=== PATIENT | male | born 1970 | race Caucasian/White ===

== ENCOUNTER 2016-09-10 00:13 | Emergency (ER) | payer BC, OTHER ==
[~2016-09-10] VITALS: Ht 177.8 cm; Wt 90.7 kg
[2016-09-10] MEDS ORDERED: NS IV 1000 ML 1,000 ML ONE (00:26)
[2016-09-10] MEDS ORDERED: ASPIRIN 81 MG CHEW (CHILDREN'S ASA) ONE (00:26)
[2016-09-10] MEDS ORDERED: fentaNYL INJECTION 100 MCG/2 ML AMP ONE (00:26)
[2016-09-10] MEDS ORDERED: fentaNYL INJECTION 100 MCG/2 ML AMP IVP STA (00:27)
[2016-09-10] MEDS ORDERED: NS IV 1000 ML 1,000 ML IV ONE ×2 (00:27→02:01)
--- NOTE | 2016-09-10 00:27 | ED Chest Pain ---
General Chief Complaint: General Problems/Pain Stated Complaint: CP Source: EMS Exam Limitations: no limitations History of Present Illness Time seen by provider: 00:19 Initial Comments Patient presents to ER by EMS with chest pain that started approximately 2030 tonight. He's had this pain intermittently for the past 3 or 4 days. It's about 8 out of 10 presently worse when he takes deep inspiration on the right side that radiates up his chest and towards his right neck and right shoulder. He is having no numbness or tingling, nausea, chills, fever, rash. He is not short of breath presently. He states in the past 6 months she's had a lot of swelling in his left ankle and right knee that was attributed to his statin use so he was started on NSAIDs Naprosyn and Nabumetone. Last dose was before going to bed. He says at home he took a single dose of amoxicillin to see if this would make it better. He has no cough nor shortness of breath. Splinting his right chest and sitting upwards make it feel better. For the past 6 months is been told to stay off his left foot so he has been spitting most of his time in his recliner fairly immobilized. He has no pain swelling or redness in his lower extremities. He says the left ankle is just about completely healed. He does however have a history of high blood pressure and diabetes but no hypothyroidism. He does not smoke but uses a can of chewing tobacco every 2-3 days. No significant family history. Patient states he has been held up in his recliner for the past 6 months secondary to his inflammatory right knee and left ankle disorder. Allergies and Home Medications Allergies Coded Allergies: No Known Drug Allergies (Unverified , 09/10/16) Home Medications Cetirizine HCl 10 Mg Tablet, #90 (Reported) Glipizide/Metformin HCl 1 Each Tablet, #60 (Reported) Hydrocodone/Acetaminophen 1 Each Tablet, #60 (Reported) Lisinopril 40 Mg Tablet, #30 (Reported) Lorazepam 1 Mg Tablet, #30 (Reported) Metoprolol Tartrate 100 Mg Tablet, #60 (Reported) Nabumetone 500 Mg Tablet, #60 (Reported) Ranitidine HCl 150 Mg Tablet, #180 (Reported) [ProAir] , #9 (Reported) Review of Systems Constitutional: No chills, No diaphoresis, No fever, No malaise Respiratory: Denies Cough, Denies Shortness of Air Cardiovascular: See HPI, Chest Pain, Denies Edema, Denies Irregular Heart Rate , Denies Lightheadedness, Denies Palpitations, Denies Syncope Gastrointestinal: Denies Abdomen Distended, Denies Abdominal Pain, Denies Constipated, Denies Diarrhea, Denies Nausea, Denies Vomiting Genitourinary: Denies Burning, Denies Discharge Musculoskeletal: No back pain, No joint pain Skin: No pruritus, No rash Psychiatric/Neurological: Denies Headache, Denies Numbness Past Motridk-Ejgiko-Imbjks Hx Patient Social History Alcohol Use: Occasionally Uses Recreational Drug Use: No Smoking Status: Never a Smoker Type Used: Smokeless Tobacco Recent Foreign Travel: No Contact w/Someone Who Travel: No Physical Exam Vital Signs Vital Sign - Last 12Hours 09/10/16 00:13 Temp 97.4 Pulse 96 Resp 24 B/P (MAP) 176/123 Pulse Ox 97 O2 Delivery Room Air Capillary Refill : General Appearance: WD/WN, Mild Distress Neck: Full Range of Motion, Supple Respiratory: Lungs Clear, Normal Breath Sounds, No Accessory Muscle Use, No Respiratory Distress, Other (chest is tender to palpation in the mid axillary to the nipple line about rib 4 through 6.) Cardiovascular: Regular Rate, Rhythm, No Edema, No JVD, No Murmur, Normal Peripheral Pulses Gastrointestinal: Normal Bowel Sounds, Non Tender, Soft Extremity: Normal Capillary Refill, Normal Inspection, No Calf Tenderness, No Pedal Edema Neurologic/Psychiatric: Alert, Oriented x3, Normal Mood/Affect Skin: Normal Color, Warm/Dry Progress/Results/Core Measures Results/Orders Lab Results Laboratory Tests Test 09/10/16 00:13 Range/Units White Blood Count 11.3 H 4.3-11.0 10^3/uL Red Blood Count 4.51 4.35-5.85 10^6/uL Hemoglobin 14.7 13.3-17.7 G/DL Hematocrit 43 40-54 % Mean Corpuscular Volume 94 80-99 FL Mean Corpuscular Hemoglobin 33 25-34 PG Mean Corpuscular Hemoglobin Concent 35 32-36 G/DL Red Cell Distribution Width 12.6 10.0-14.5 % Platelet Count 202 130-400 10^3/uL Mean Platelet Volume 11.1 H 7.4-10.4 FL Neutrophils (%) (Auto) 57 42-75 % Lymphocytes (%) (Auto) 29 12-44 % Monocytes (%) (Auto) 12 0-12 % Eosinophils (%) (Auto) 3 0-10 % Basophils (%) (Auto) 0 0-10 % Neutrophils # (Auto) 6.4 1.8-7.8 X 10^3 Lymphocytes # (Auto) 3.2 1.0-4.0 X 10^3 Monocytes # (Auto) 1.3 H 0.0-1.0 X 10^3 Eosinophils # (Auto) 0.3 0.0-0.3 10^3/uL Basophils # (Auto) 0.0 0.0-0.1 10^3/uL Prothrombin Time 12.9 12.2-14.7 SEC INR Comment 1.0 0.8-1.4 Activated Partial Thromboplast Time 29 24-35 SEC D-Dimer 2.47 H 0.00-0.49 UG/ML Sodium Level 139 135-145 MMOL/L Potassium Level 3.7 3.6-5.0 MMOL/L Chloride Level 103 98-107 MMOL/L Carbon Dioxide Level 21 21-32 MMOL/L Anion Gap 15 H 5-14 MMOL/L Blood Urea Nitrogen 16 7-18 MG/DL Creatinine 1.03 0.60-1.30 MG/DL Estimat Glomerular Filtration Rate > 60 BUN/Creatinine Ratio 16 Glucose Level 98 70-105 MG/DL Calcium Level 9.5 8.5-10.1 MG/DL Magnesium Level 1.0 *L 1.8-2.4 MG/DL Total Bilirubin 0.6 0.1-1.0 MG/DL Aspartate Amino Transf (AST/SGOT) 27 5-34 U/L Alanine Aminotransferase (ALT/SGPT) 39 0-55 U/L Alkaline Phosphatase 80 40-136 U/L Myoglobin 32.1 10.0-92.0 NG/ML Troponin I < 0.30 <0.30 NG/ML Total Protein 7.9 6.4-8.2 GM/DL Albumin 4.3 3.2-4.5 GM/DL Lipase 177 H 8-78 U/L My Orders Orders - EMMY CID Cbc With Automated Diff (09/10/16 00:27) Magnesium (09/10/16 00:27) Chest 1 View, Ap/Pa Only (09/10/16 00:27) Ekg Tracing (09/10/16 00:27) Cardiac Profile 1 (09/10/16) Comprehensive Metabolic Panel (09/10/16 00:) Myoglobin Serum (09/10/16 00:) Protime With Inr (09/10/16:) Partial Thromboplastin Time (09/10/16 00:) O2 (09/10/16:) Monitor-Rhythm Ecg Trace Only (09/10/16) Lipid Panel (09/11/16 06:00) Aspirin Chewable Tablet (Baby Aspirin Ch (09/10/16 00:30) Saline Lock/Iv-Start (09/10/16 00:27) Lipase (09/10/16:) Fibrin Degradation Products (09/10/16:) Saline Lock/Iv-Start (09/10/16 00:27) Ns Iv 1000 Ml (Sodium Chloride 0.9%) (09/10/16 00:27) Fentanyl Injection (Sublimaze Injection (09/10/16 00:27) Fentanyl Injection (Sublimaze Injection (09/10/16 00:26) Aspirin Chewable Tablet (Baby Aspirin Ch (09/10/16 00:26) Ns Iv 1000 Ml (Sodium Chloride 0.9%) (09/10/16 00:26) Hydrocodone/Apap 5/325 Tablet (Lortab 5 (09/10/16 02:15) Ct Abdomen/Pelvis W (09/10/16 02:01) Ns Iv 1000 Ml (Sodium Chloride 0.9%) (09/10/16 02:01) Iohexol Injection (Omnipaque 350 Mg/Ml 1 (09/10/16 02:30) Ns (Ivpb) (Sodium Chloride 0.9% Ivpb Bag (09/10/16 02:30) Magnesium 1 Gm/100 Ml Ivpb (Magnesium Posada (09/10/16 02:30) Magnesium Oxide Tablet (Mag Ox Tablet) (09/10/16 02:30) Lorazepam Injection (Ativan Injection) (09/10/16 03:45) Rivaroxaban Tablet (Xarelto Tablet) (09/10/16 04:00) Rivaroxaban Tablet (Xarelto Tablet) (09/10/16 03:54) Medications Given in ED Current Medications Medications Dose Ordered Sig/Taras Route Start Time Stop Time Status Last Admin Dose Admin Acetaminophen/ Hydrocodone Bitart 1 tab ONCE ONCE PO 09/10/16 02:15 09/10/16 02:16 DC 09/10/16 02:36 1 TAB Aspirin 324 mg ONCE ONCE PO 09/10/16 00:30 09/10/16 00:31 DC 09/10/16 00:37 324 MG Iohexol 100 ml ONCE ONCE IV 09/10/16 02:30 09/10/16 03:19 DC 09/10/16 02:24 100 ML Lorazepam 0.5 mg ONCE ONCE IVP 09/10/16 03:45 09/10/16 03:46 DC 09/10/16 04:25 0.5 MG Magnesium Oxide 400 mg ONCE ONCE PO 09/10/16 02:30 09/10/16 02:31 DC 09/10/16 02:47 400 MG Magnesium Sulfate/ Dextrose 100 ml @ 100 mls/hr ONCE ONCE IV 09/10/16 02:30 09/10/16 03:29 DC 09/10/16 02:41 100 MLS/HR Rivaroxaban 15 mg ONCE ONCE PO 09/10/16 04:00 09/10/16 04:01 DC 09/10/16 04:26 15 MG Sodium Chloride 80 ml ONCE ONCE IV 09/10/16 02:30 09/10/16 03:19 DC 09/10/16 02:23 80 ML Sodium Chloride 1,000 ml @ 0 mls/hr Q0M ONCE IV 09/10/16 00:27 09/10/16 00:30 DC 09/10/16 00:37 1,000 MLS/HR Sodium Chloride 1,000 ml @ 0 mls/hr Q0M ONCE IV 09/10/16 02:01 09/10/16 02:05 DC 09/10/16 02:36 1,000 MLS/HR Vital Signs/I&O Vital Sign - Last 12Hours 09/10/16 09/10/16 00:13 03:57 Temp 97.4 Pulse 96 77 Resp 24 20 B/P (MAP) 176/123 155/113 Pulse Ox 97 96 O2 Delivery Room Air Room Air Progress Note #1: Time: 02:34 Progress Note Mild increase in lipase patient is a history of these had hypertriglyceridemia along with his cholesterolemia and is not able to tolerate statins. Allowed along with his diabetes which is been out of control secondary to his use of prednisone for his right knee and left ankle pain. Lead to a diagnosis of acute pancreatitis. We'll get a CT scan abdomen. Progress Note #2: Time: 03:56 Progress Note Xarelto; 15 mg twice daily with food for 21 days followed by 20 mg once daily with food. We will stress test him by allowing him to walk to bathroom off of O2 to see if he will need inpt or outpt Tx for his provoked PE. ECG Initial ECG Impression Date: Sep 10, 2016 Initial ECG Impression Time: 00:19 Initial ECG Rate: 96 Initial ECG Rhythm: Normal Sinus Initial ECG Intervals: Normal Initial ECG Impression: Normal Initial ECG Comparisson: No Previous ECG Available Comment No ST wave elevation or depression. Diagnostic Imaging Diagonstic Imaging: Xray Plain Films/CT/US/NM/MRI: chest Comments Poor inspiratory effort probably secondary to pain. No acute processes noted. Reviewed: Reviewed by Me Diagonstic Imaging: CT Plain Films/CT/US/NM/MRI: abdomen (pelvis with) Comments PE RLL infarct and Left Inguinal fat containing hernia. Partially imaged moderate to large pulmonary embolus in the right lower lobe. Right lower lung has heterogenous opacity with peripheral consolidation a small pleural effusion suggestive of infarct. fatty liver. Large fat-containing left inguinal hernia. Appendix is visualized is normal. Reviewed: Reviewed [place] Study, Reviewed by Me, Discussed w/Radiologist Departure Impression Impression: Primary Impression: Pulmonary embolism and infarction Disposition: 01 HOME, SELF-CARE Condition: Improved Departure-Patient Inst. Decision time for Depature: 04:32 Referrals: [facility] (PCP/Family) Primary Care Physician Patient Instructions: Pulmonary Embolism (Blood Clot in the Lungs) (DC) Add. Discharge Instructions: You have a clot in her lungs that he'll require anticoagulation with Xarelto. For the first 3 weeks she will need to take 15 mg twice a day. After that you will need to be on 20 mg every day for a total of about 3 months. Please plan to follow up with your primary care physician next week. If you're having new or worsening symptoms such as fevers, increasing shortness of breath, uncontrollable pain or other worrisome symptoms then you should return to the ER immediately. Do not take any NSAIDs such as Naprosyn, nabumetone, ibuprofen, Aleve, Motrin etc. while on blood thinners. You should not do anything that would increase your risk for a fall or head injury. If you do have a fall or hit your head you should return to the ER for evaluation immediately. If you get cut you're going to be more prone to bleed so you should apply direct pressure over the site and hold the wound above the level of your heart for 20- 30 minutes. If you're having pain you should take Tylenol 500 mg every 6 hours as needed as well as you can use a pillow to splint your side or heating pad. If this does not work then you can use the [place] one tablet every 6 hours to control your pain. You will need to see your primary care physician if you need refills of any of your medicines. All discharge instructions reviewed with patient and/or family. Voiced understanding. Scripts Hydrocodone/Acetaminophen (Hydrocodon -Acetaminophen 5-325) 1 Each Tablet 1 EACH PO Q6H Y for BREAKTHROUGH PAIN, #20 TAB 0 Refills Prov: EMMY CID 09/10/16 Rivaroxaban (Xarelto Starter Pack) 1 Each Tab.ds.pk 1 EACH PO UD for 30 Days, #51 PKG 0 Refills 15mg by mouth twice daily x 21 days then 20mg by mouth daily Prov: EMMY CID 09/10/16 Work/School Note: Work Release Form Date Seen in the Emergency Department: Sep 10, 2016 Return to Work: Sep 11, 2016 Restrictions: Need Release from Doctor Other Restrictions Listed Below: No climbing or anything that would put him in increased risk for falls. Copy Copies To 1: ANJEL BRADFORD DO EMMY CID Sep 10, 2016 00:27
[2016-09-10] MEDS ORDERED: ASPIRIN 81 MG CHEW (CHILDREN'S ASA) PO ONE (00:30)
[2016-09-10 00:34] LABS: BASOPHILS % (AUTO) 0 % (0-10); EOSINOPHILS # (AUTO) 0.3 10^3/uL (0.0-0.3); EOSINOPHILS % (AUTO) 3 % (0-10); LYMPHOCYTES # (AUTO) 3.2 X 10^3 (1.0-4.0); LYMPHOCYTES % (AUTO) 29 % (12-44); MEAN CORPUSCULAR HEMOGLOBIN 33 PG (25-34); MEAN CORPUSCULAR HGB CONC 35 G/DL (32-36); MEAN CORPUSCULAR VOLUME 94 FL (80-99); MEAN PLATELET VOLUME 11.1 FL (7.4-10.4); MONOCYTES # (AUTO) 1.3 X 10^3 (0.0-1.0); MONOCYTES % (AUTO) 12 % (0-12); NEUTROPHILS # (AUTO) 6.4 X 10^3 (1.8-7.8); NEUTROPHILS % (AUTO) 57 % (42-75); PLATELET COUNT 202 10^3/uL (130-400); RED BLOOD COUNT 4.51 10^6/uL (4.35-5.85); RED CELL DISTRIBUTION WIDTH 12.6 % (10.0-14.5); WHITE BLOOD COUNT 11.3 10^3/uL (4.3-11.0)
[2016-09-10] MEDS ORDERED: CETI10TA17 (00:45)
[2016-09-10] MEDS ORDERED: ProAir (00:45)
[2016-09-10] MEDS ORDERED: METO100T2 (00:45)
[2016-09-10] MEDS ORDERED: NABU500T (00:45)
[2016-09-10] MEDS ORDERED: GLIP1TAB6 (00:45)
[2016-09-10] MEDS ORDERED: LORA1TAB (00:45)
[2016-09-10] MEDS ORDERED: RANI150T11 (00:45)
[2016-09-10] MEDS ORDERED: LISI40TA (00:45)
[2016-09-10] MEDS ORDERED: HYDR-3812 (00:45)
[2016-09-10 00:47] LABS: ALANINE AMINOTRANSFERASE 39 U/L (0-55); ALBUMIN 4.3 GM/DL (3.2-4.5); ANION GAP 15 MMOL/L (5-14); ASPARTATE AMINO TRANSFERASE 27 U/L (5-34); BILIRUBIN,TOTAL 0.6 MG/DL (0.1-1.0); BLOOD UREA NITROGEN 16 MG/DL (7-18); BUN/CREATININE RATIO 16; CALCIUM 9.5 MG/DL (8.5-10.1); CARBON DIOXIDE 21 MMOL/L (21-32); CHLORIDE 103 MMOL/L (98-107); CREATININE SERUM 1.03 MG/DL (0.60-1.30); GFR ESTIMATED > 60; GLUCOSE 98 MG/DL (70-105); LIPASE 177 U/L (8-78); POTASSIUM 3.7 MMOL/L (3.6-5.0); SODIUM 139 MMOL/L (135-145); TOTAL PROTEIN 7.9 GM/DL (6.4-8.2)
[2016-09-10 00:54] LABS: MYOGLOBIN SERUM 32.1 NG/ML (10.0-92.0)
[2016-09-10 01:11] LABS: PROTHROMBIN TIME PATIENT 12.9 SEC (12.2-14.7)
[2016-09-10] MEDS ORDERED: HYDROcodone/APAP 5 MG/325 MG (LORTAB) TAB PO ONE (02:15)
[2016-09-10] MEDS ORDERED: MAGNESIUM OXIDE (MAG-OX)400 MG TAB PO ONE (02:30)
[2016-09-10] MEDS ORDERED: NS 100 ML (IVPB) BAG IV ONE (02:30)
[2016-09-10] MEDS ORDERED: IOHEXOL 350 MG/ML 100 ML (OMNIPAQUE 350) VIAL IV ONE (02:30)
[2016-09-10] MEDS ORDERED: MAGNESIUM 1 GM/100 ML IVPB 100 ML IV ONE (02:30)
[2016-09-10] MEDS ORDERED: LORazepam INJ 2 MG/ML (ATIVAN) VIAL IVP ONE (03:45)
[2016-09-10] MEDS ORDERED: RIVAROXABAN 15 MG TABLET (XARELTO) ONE (03:54)
[2016-09-10 03:57] VITALS: BP 155/113
[2016-09-10] MEDS ORDERED: RIVAROXABAN 15 MG TABLET (XARELTO) PO ONE (04:00)
[2016-09-10] MEDS ORDERED: RIVA1TAB PO (04:40)
[2016-09-10] MEDS ORDERED: HYDR-3812 PO (04:40)
[2016-09-10 04:50] VITALS: BP 156/116
--- NOTE | 2016-09-10 07:24 | Diagnostic Imaging Report ---
INDICATION: Shortness of air, chest pain.. TECHNIQUE: Single view chest 12:40 AM. CORRELATION STUDY: None FINDINGS: Heart size enlarged. Mediastinum is mildly prominent. Vasculature is slightly increased. There does appear to be some early atelectasis or infiltrate lung bases. However, some of this is accentuated by technique. Probable small effusions. IMPRESSION: 1. Cardiac enlargement with prominent mediastinum. Vascular also increased. Some of this may be attributed to a limited depth of inspiration and technique. Early fluid overload or failure however not excluded. There may be minimal atelectasis or infiltrate along with a small effusion in the lung bases. Dictated by: Dictated on workstation # [id number]
--- NOTE | 2016-09-10 07:43 | Diagnostic Imaging Report ---
PROCEDURE: CT abdomen and pelvis with contrast. TECHNIQUE: Multiple contiguous axial images were obtained through the abdomen and pelvis after administration of intravenous contrast. INDICATION: CORRELATION STUDY: None. FINDINGS: The partially visualized lung bases demonstrates what appears to be extensive of embolus within the right lower lobe branches. Right lower lung has heterogeneous opacity with peripheral consolidation and small pleural effusions suggestive of the pulmonary infarct. Heart size is mildly enlarged. EG junction unremarkable. There is hepatic steatosis with a enlarged liver greater than 20 cm in length. Spleen also mildly enlarged. Gallbladder contracted. Pancreas and adrenal glands unremarkable. Abdominal aorta unremarkable apart from mild wall calcification. Kidneys demonstrate normal enhancement. No obstruction. Gastric vessel tract without obstruction or inflammation. Large fat containing left inguinal hernia. Appendix located in the right lower quadrant and unremarkable. Urinary bladder unremarkable. IMPRESSION: 1. Findings consistent with rather extensive emboli within the right lower lobe with findings suggestive of underlying pulmonary infarct. 2. Hepatomegaly with hepatic steatosis. 3. Rather large, fat-containing left inguinal hernia. Fat extends into the visualized portion of the scrotum. A preliminary report was provided by [employer]. Dictated by: Dictated on workstation # [id number]
== END 2016-09-10 04:50 | disposition home or self-care (01) ==
LOC: EDUNIT# 00:13 → ER 00:14
DX: I26.99 Other pulmonary embolism without acute cor pulmonale (principal); K76.0 Fatty (change of) liver, not elsewhere classified; K40.90 Unilateral inguinal hernia, without obstruction or gangrene, not specified as recurrent; E78.5 Hyperlipidemia, unspecified; I10 Essential (primary) hypertension; E11.9 Type 2 diabetes mellitus without complications; F17.220 Nicotine dependence, chewing tobacco, uncomplicated; Z79.84 Long term (current) use of oral hypoglycemic drugs; Z79.899 Other long term (current) drug therapy
CPT/HCPCS: 36415; 71010; 74177; 80053; 83690; 83735; 83874; 84484; 85025; 85379; 85610; 85730; 93005; 96361; 96365; 96375

== ENCOUNTER 2016-09-15 06:45 | Emergency (ER) | payer BC ==
[~2016-09-15] VITALS: Ht 177.8 cm; Wt 93.0 kg
[~2016-09-15 06:45] MED LIST: CETI10TA17; GLIP1TAB6; HYDR-3812; HYDR-3812 PO; LISI40TA; LORA1TAB; METO100T2; NABU500T; ProAir; RANI150T11; RIVA1TAB PO
[2016-09-15] MEDS ORDERED: NS IV 1000 ML 1,000 ML IV ONE (07:09)
[2016-09-15] MEDS ORDERED: fentaNYL INJECTION 100 MCG/2 ML AMP IVP STA (07:09)
[2016-09-15 07:24] LABS: BASOPHILS % (AUTO) 0 % (0-10); EOSINOPHILS # (AUTO) 0.1 10^3/uL (0.0-0.3); EOSINOPHILS % (AUTO) 1 % (0-10); LYMPHOCYTES % (AUTO) 17 % (12-44); MEAN CORPUSCULAR HEMOGLOBIN 32 PG (25-34); MEAN CORPUSCULAR HGB CONC 34 G/DL (32-36); MEAN CORPUSCULAR VOLUME 95 FL (80-99); MEAN PLATELET VOLUME 10.7 FL (7.4-10.4); MONOCYTES # (AUTO) 1.5 X 10^3 (0.0-1.0); MONOCYTES % (AUTO) 13 % (0-12); NEUTROPHILS # (AUTO) 7.9 X 10^3 (1.8-7.8); NEUTROPHILS % (AUTO) 69 % (42-75); PLATELET COUNT 216 10^3/uL (130-400); RED BLOOD COUNT 4.05 10^6/uL (4.35-5.85); RED CELL DISTRIBUTION WIDTH 12.5 % (10.0-14.5); WHITE BLOOD COUNT 11.4 10^3/uL (4.3-11.0)
[2016-09-15 07:41] LABS: ALANINE AMINOTRANSFERASE 45 U/L (0-55); ALBUMIN 3.9 GM/DL (3.2-4.5); AMYLASE 92 U/L (25-125); ANION GAP 16 MMOL/L (5-14); ASPARTATE AMINO TRANSFERASE 32 U/L (5-34); BILIRUBIN,TOTAL 0.7 MG/DL (0.1-1.0); BLOOD UREA NITROGEN 11 MG/DL (7-18); BUN/CREATININE RATIO 9; CALCIUM 8.7 MG/DL (8.5-10.1); CARBON DIOXIDE 19 MMOL/L (21-32); CHLORIDE 102 MMOL/L (98-107); CREATININE SERUM 1.16 MG/DL (0.60-1.30); GFR ESTIMATED > 60; GLUCOSE 130 MG/DL (70-105); LIPASE 35 U/L (8-78); SODIUM 137 MMOL/L (135-145); TOTAL PROTEIN 7.7 GM/DL (6.4-8.2)
--- NOTE | 2016-09-15 07:45 | Diagnostic Imaging Report ---
INDICATION: Shortness of air. Recent pulmonary emboli. COMPARISON: CT abdomen and pelvis from 09/10/2016. FINDINGS: Right basilar heterogeneous opacities have not significantly changed. Small right pleural effusion persists. No pneumothorax. Stable borderline cardiomegaly. IMPRESSION: 1. Right basilar heterogeneous opacities likely relate to a combination of atelectasis and potential pulmonary infarct given known pulmonary emboli. 2. Trace right pleural effusion is unchanged. Dictated by: Dictated on workstation # [id number]
[2016-09-15 07:48] LABS: TROPONIN I < 0.30 NG/ML (<0.30)
--- NOTE | 2016-09-15 07:53 | ED Chest Pain ---
General Chief Complaint: Chest Pain Stated Complaint: BLOOD CLOT IN LUNG Nursing Triage Note: COMPLAINS OF RIGHT SIDED CHEST PAIN THAT STARTED AT MIDNOC BUT BECAME WORSE AT 0515. PT STATES HE TOOK HYDROCODONE BEFORE COMING TO THE ER. Nursing Sepsis Screen: Possible Sepsis Risk Source: patient Exam Limitations: no limitations History of Present Illness Time seen by provider: 07:00 Initial Comments Here with complaint of increasing right-sided chest pain that has been going on for the last several days after he was noted to have a pulmonary embolism and pulmonary infarct on the right lower lung field several days ago. Patient is on Xarelto and is taking as prescribed. States that he forgot to take his pain medicine yesterday and had a terrible daily at work. Was a little better last night but after midnight started having increasing pain that was front to back on the right lower chest. He tried a heating pad and a pain pill and that decreased the pain to the back but the pain anteriorly on the right low chest is very significant. He is having a difficult time with the breathing or moving. Timing/Duration: 4-6 hours, getting worse Severity/Quality: moderate, severe, aching Location: other (right low chest wall) Radiation: back Activities at Onset: activity Prior CP/Workup: pulmonary embolism Modifying Factors: worse with movement, improves with rest ASA po DESIGN CONSULTANT: No NTG SL DESIGN CONSULTANT: No Associated Symptoms: abdominal pain (right upper quadrant), back pain, No fever /chills, No nausea/vomiting, shortness of breath Allergies and Home Medications Allergies Coded Allergies: No Known Drug Allergies (Unverified , 09/10/16) Home Medications Cetirizine HCl 10 Mg Tablet, #90 (Reported) Glipizide/Metformin HCl 1 Each Tablet, #60 (Reported) Hydrocodone/Acetaminophen 1 Each Tablet, #60 (Reported) Hydrocodone/Acetaminophen 1 Each Tablet, 1 EACH PO Q6H PRN for BREAKTHROUGH PAIN , #20 Ref 0 Prescribed by: EMMY CID on 09/10/16 0440 Lisinopril 40 Mg Tablet, #30 (Reported) Lorazepam 1 Mg Tablet, #30 (Reported) Metoprolol Tartrate 100 Mg Tablet, #60 (Reported) Nabumetone 500 Mg Tablet, #60 (Reported) Ranitidine HCl 150 Mg Tablet, #180 (Reported) Rivaroxaban 1 Each Tab.ds.pk, 1 EACH PO UD for 30 Days, #51 Ref 0 15mg by mouth twice daily x 21 days then 20mg by mouth daily Prescribed by: EMMY CID on 09/10/16 0440 [ProAir] , #9 (Reported) Review of Systems Constitutional: see HPI, No chills, No fever EENTM: No Symptoms Reported Respiratory: See HPI, Cough, Shortness of Air, Other (some hemoptysis noted) Cardiovascular: Chest Pain, Denies Edema Gastrointestinal: See HPI, Abdominal Pain, Denies Diarrhea, Denies Nausea, Denies Vomiting Genitourinary: No Symptoms Reported Musculoskeletal: back pain, muscle pain Skin: no symptoms reported Psychiatric/Neurological: No Symptoms Reported Endocrine: No Symptoms Reported All Other Systems Reviewed Negative Unless Noted: Yes Past Jjazqor-Fpysuk-Vxvzqs Hx Patient Social History Alcohol Use: Denies Use Recreational Drug Use: No Smoking Status: Never a Smoker Type Used: Smokeless Tobacco Recent Foreign Travel: No Contact w/Someone Who Travel: No Recent Infectious Disease Expo: No Recent Hopitalizations: No Surgeries HX Surgeries: No Respiratory Hx Respiratory Disorders: Yes Respiratory Disorders: Pulmonary Embolism Cardiovascular Hx Cardiac Disorders: Yes Cardiac Disorders: Hypertension Gastrointestinal Hx Gastrointestinal Disorders: No Musculoskeletal Hx Musculoskeletal Disorders: No Endocrine Hx Endocrine Disorders: Yes Endocrine Disorders: Diabetes, Non-Insulin dep Reviewed Nursing Assessment Reviewed/Agree w Nursing PMH: Yes Family Medical History Significant Family History: No Pertinent Family Hx Physical Exam Vital Signs Vital Sign - Last 12Hours 09/15/16 07:04 Temp 99.8 Pulse 107 Resp 16 B/P (MAP) 122/95 Pulse Ox 95 O2 Delivery Room Air Capillary Refill : Less Than 3 Seconds General Appearance: No Apparent Distress, WD/WN HEENT: PERRL/EOMI, Pharynx Normal Neck: Non Tender, Supple Respiratory: Decreased Breath Sounds, Other (respiratory splinting noted with even moderate deep breath.) Cardiovascular: No Murmur, Tachycardia Gastrointestinal: Non Tender, Soft Extremity: Normal Range of Motion, Non Tender Neurologic/Psychiatric: Alert, Oriented x3 Skin: Normal Color, Warm/Dry Progress/Results/Core Measures Results/Orders Lab Results Laboratory Tests Test 09/15/16 07:10 Range/Units White Blood Count 11.4 H 4.3-11.0 10^3/uL Red Blood Count 4.05 L 4.35-5.85 10^6/uL Hemoglobin 12.9 L 13.3-17.7 G/DL Hematocrit 39 L 40-54 % Mean Corpuscular Volume 95 80-99 FL Mean Corpuscular Hemoglobin 32 25-34 PG Mean Corpuscular Hemoglobin Concent 34 32-36 G/DL Red Cell Distribution Width 12.5 10.0-14.5 % Platelet Count 216 130-400 10^3/uL Mean Platelet Volume 10.7 H 7.4-10.4 FL Neutrophils (%) (Auto) 69 42-75 % Lymphocytes (%) (Auto) 17 12-44 % Monocytes (%) (Auto) 13 H 0-12 % Eosinophils (%) (Auto) 1 0-10 % Basophils (%) (Auto) 0 0-10 % Neutrophils # (Auto) 7.9 H 1.8-7.8 X 10^3 Lymphocytes # (Auto) 2.0 1.0-4.0 X 10^3 Monocytes # (Auto) 1.5 H 0.0-1.0 X 10^3 Eosinophils # (Auto) 0.1 0.0-0.3 10^3/uL Basophils # (Auto) 0.0 0.0-0.1 10^3/uL Sodium Level 137 135-145 MMOL/L Potassium Level 4.0 3.6-5.0 MMOL/L Chloride Level 102 98-107 MMOL/L Carbon Dioxide Level 19 L 21-32 MMOL/L Anion Gap 16 H 5-14 MMOL/L Blood Urea Nitrogen 11 7-18 MG/DL Creatinine 1.16 0.60-1.30 MG/DL Estimat Glomerular Filtration Rate > 60 BUN/Creatinine Ratio 9 Glucose Level 130 H 70-105 MG/DL Calcium Level 8.7 8.5-10.1 MG/DL Total Bilirubin 0.7 0.1-1.0 MG/DL Aspartate Amino Transf (AST/SGOT) 32 5-34 U/L Alanine Aminotransferase (ALT/SGPT) 45 0-55 U/L Alkaline Phosphatase 102 40-136 U/L Troponin I < 0.30 <0.30 NG/ML Total Protein 7.7 6.4-8.2 GM/DL Albumin 3.9 3.2-4.5 GM/DL Amylase Level 92 25-125 U/L Lipase 35 8-78 U/L My Orders Orders - JANET VILLASENOR MD Cbc With Automated Diff (09/15/16 07:09) Comprehensive Metabolic Panel (09/15/16 07:09) Troponin I (09/15/16 07:09) Saline Lock/Iv-Start (09/15/16 07:09) Ns Iv 1000 Ml (Sodium Chloride 0.9%) (09/15/16 07:09) Fentanyl Injection (Sublimaze Injection (09/15/16 07:09) Ekg Tracing (09/15/16 07:09) Monitor-Rhythm Ecg Trace Only (09/15/16 07:09) Chest Pa/Lat (2 View) (09/15/16 07:09) Amylase (09/15/16 07:09) Lipase (09/15/16 07:09) Sputum Culture (09/15/16 07:30) Hydromorphone Injection (Dilaudid Inject (09/15/16 08:16) Ct Angio Chest W (09/15/16 08:16) Iohexol Injection (Omnipaque 350 Mg/Ml 1 (09/15/16 08:30) Sodium Chloride Flush (Catheter Flush Sy (09/15/16 08:30) Hydrocodone/Apap 10/325 Tablet (Lortab 1 (09/15/16 10:12) Medications Given in ED Current Medications Medications Dose Ordered Sig/Taras Route Start Time Stop Time Status Last Admin Dose Admin Iohexol 150 ml ONCE ONCE IV 09/15/16 08:30 09/15/16 08:31 DC 09/15/16 08:55 125 ML Sodium Chloride 10 ml NEEDED PRN IV 09/15/16 08:30 09/15/16 08:55 10 ML Sodium Chloride 1,000 ml @ 0 mls/hr Q0M ONCE IV 09/15/16 07:09 09/15/16 07:11 DC 09/15/16 07:18 1,000 MLS/HR Vital Signs/I&O Vital Sign - Last 12Hours 09/15/16 07:04 Temp 99.8 Pulse 107 Resp 16 B/P (MAP) 122/95 Pulse Ox 95 O2 Delivery Room Air Blood Pressure Mean: 104 Progress Note : Progress Note Seen and evaluated. IV, labs, EKG and chest x-ray ordered. Fentanyl 100 g IV ordered. Monitor patient. 0805: I did discuss the case with the radiologist. The patient is having markedly increasing pain. We will do CT angiogram chest to further evaluate all lung piña related to pulmonary embolism. This was discussed with the patient. He is going to try and agrees but he is having difficulty laying back due to pain. Dilaudid [address] angiogram completed. Results reviewed. I did discuss the case with Dr. Guzman Obregon at 0942. She is going to talk with patient's primary provider about further pain meds. Hydrocodone 10/325 one tab by mouth given. 1030: Discharge home with return precautions. Patient's primary provider will call him today. This was discussed with the patient. Patient verbalize understanding of instructions and agreement with plan ECG Initial ECG Impression Date: Sep 15, 2016 Initial ECG Impression Time: :17 Initial ECG Rhythm: Normal Sinus Initial ECG Comparisson: Unchanged Comment Sinus rhythm with normal axis. Wondering baseline. Q waves and inverted T's noted in lead 3 with deeper S1. No evidence of ST elevation [place]. Interpreted by me. Diagnostic Imaging Diagonstic Imaging: Xray Plain Films/CT/US/NM/MRI: chest [facility] [place] [place] NAME: NIESHA SANCHEZ [facility] REC#: [id number] PT STATUS: REG ER : 1970 PHYSICIAN: JANET VILLASENOR MD ADMIT DATE: 09/15/16/ER Draft Date of Exam:09/15/16 CHEST PA/LAT (2 VIEW) INDICATION: Shortness of air. Recent pulmonary emboli. COMPARISON: CT abdomen and pelvis from 09/10/2016. FINDINGS: Right basilar heterogeneous opacities have not significantly changed. Small right pleural effusion persists. No pneumothorax. Stable borderline cardiomegaly. IMPRESSION: 1. Right basilar heterogeneous opacities likely relate to a combination of atelectasis and potential pulmonary infarct given known pulmonary emboli. 2. Trace right pleural effusion is unchanged. Dictated on workstation # [id number] Dict: 09/15/16 0742 Trans: 09/15/16 0745 [id number] Interpreted by: MITZI CONKLIN MD Electronically signed by: Diagonstic Imaging: CT Plain Films/CT/US/NM/MRI: chest Comments [place] NAME: NIESHA SANCHEZ [facility] REC#: [id number] PT STATUS: REG ER : 1970 PHYSICIAN: JANET VILLASENOR MD ADMIT DATE: 09/15/16/ER Draft Date of Exam:09/15/16 CT ANGIO CHEST W PROCEDURE: CT angiography of the chest with contrast. TECHNIQUE: Multiple contiguous axial images were obtained through the chest after uneventful bolus administration of intravenous contrast. Reconstructed CTA MIP acquisitions were also performed. INDICATION: History of pulmonary emboli. Pain. COMPARISON: 09/10/2016. FINDINGS: Evaluation of the pulmonary arteries again demonstrates large amount of thrombus burden within the right middle and right lower lobe pulmonary arteries. When compared to included portions of the chest on prior CT abdomen from 09/10/2016, thrombus burden on the right is essentially stable. There is suggestion of small emboli within the subsegmental branches of the left lower lobe pulmonary artery as well; however, there is mild/moderate image degradation secondary to motion artifact. Interventricular cardiac septum is midline. There is no significant reflux of contrast into the hepatic veins or IVC. Heart size is within normal limits. There is no large pericardial effusion. Evaluation of the lungs demonstrates interval increase in mild/ moderate right-sided pleural effusion. There has also been interval progression of airspace disease within the right lower lobe suggestive of evolution of pulmonary infarct. There is some mild atelectasis of the left lower lobe. Otherwise, left lung is relatively clear. No large effusion is seen on the left. No pneumothorax is identified on either side. Bony structures show no acute abnormalities. No lytic or blastic bony lesions are seen. Included portions of the upper abdomen show no new acute abnormalities. IMPRESSION: 1. Stable pulmonary embolus burden within the right middle and lower lobe pulmonary arteries. 2. Findings suggestive of possible new small emboli within the left lower lobe pulmonary arteries. This however may be artifactual and related to motion artifact. 3. Interval progression of mild/ moderate right-sided pleural effusion. 4. Interval progression of airspace disease within the right lower lobe likely on the basis of evolving pulmonary infarct. Dictated on workstation # [id number] Dict: 09/15/16 0907 Trans: 09/15/16 0918 [id number] Interpreted by: EDEL HOOK Electronically signed by: Reviewed: Reviewed by Me Departure Impression Impression: Primary Impression: Pulmonary embolism and infarction Disposition: 01 HOME, SELF-CARE Condition: Stable Departure-Patient Inst. Decision time for Depature: 10:29 Referrals: [facility] (PCP) Primary Care Physician CECIL MCCLOUD (Family) Primary Care Physician Patient Instructions: Chest Pain That Is Not Caused by the Heart (DC), Pulmonary Embolism (Blood Clot in the Lungs) (DC) Add. Discharge Instructions: All discharge instructions reviewed with patient and/or family. Voiced understanding. Take medications as directed. You should here from Yash Otero today after 11 a.m. Call the office if you've not heard from him soon after that. He will adjust your pain medicines. Return for worse pain, fever, vomiting, weakness, breathing problems or other concerns as needed. Copy Copies To 1: GUZMAN OBREGON MD, TIMOTHY D MD Sep 15, 2016 07:53
[2016-09-15] MEDS ORDERED: HYDROmorphone (DILAUDID) 2 MG/ML VIAL IVP STA (08:16)
[2016-09-15] MEDS ORDERED: IOHEXOL 350 MG/ML 150 ML (OMNIPAQUE 350) VIAL IV ONE (08:30)
[2016-09-15] MEDS ORDERED: CATHETER FLUSH 10 ML SYR IV PRN (08:30)
--- NOTE | 2016-09-15 09:18 | Diagnostic Imaging Report ---
PROCEDURE: CT angiography of the chest with contrast. TECHNIQUE: Multiple contiguous axial images were obtained through the chest after uneventful bolus administration of intravenous contrast. Reconstructed CTA MIP acquisitions were also performed. INDICATION: History of pulmonary emboli. Pain. COMPARISON: 09/10/2016. FINDINGS: Evaluation of the pulmonary arteries again demonstrates large amount of thrombus burden within the right middle and right lower lobe pulmonary arteries. When compared to included portions of the chest on prior CT abdomen from 09/10/2016, thrombus burden on the right is essentially stable. There is suggestion of small emboli within the subsegmental branches of the left lower lobe pulmonary artery as well; however, there is mild/moderate image degradation secondary to motion artifact. Interventricular cardiac septum is midline. There is no significant reflux of contrast into the hepatic veins or IVC. Heart size is within normal limits. There is no large pericardial effusion. Evaluation of the lungs demonstrates interval increase in mild/ moderate right-sided pleural effusion. There has also been interval progression of airspace disease within the right lower lobe suggestive of evolution of pulmonary infarct. There is some mild atelectasis of the left lower lobe. Otherwise, left lung is relatively clear. No large effusion is seen on the left. No pneumothorax is identified on either side. Bony structures show no acute abnormalities. No lytic or blastic bony lesions are seen. Included portions of the upper abdomen show no new acute abnormalities. IMPRESSION: 1. Stable pulmonary embolus burden within the right middle and lower lobe pulmonary arteries. 2. Findings suggestive of possible new small emboli within the left lower lobe pulmonary arteries. This however may be artifactual and related to motion artifact. 3. Interval progression of mild/ moderate right-sided pleural effusion. 4. Interval progression of airspace disease within the right lower lobe likely on the basis of evolving pulmonary infarct. Dictated by: Dictated on workstation # [id number]
[2016-09-15] MEDS ORDERED: HYDROcodone/APAP 10 MG/325 MG (LORTAB) TAB PO STA (10:12)
[2016-09-15 10:35] VITALS: BP 119/93
== END 2016-09-15 10:35 | disposition home or self-care (01) ==
LOC: EDUNIT# 06:45 → ER 06:54
DX: I26.99 Other pulmonary embolism without acute cor pulmonale (principal); I10 Essential (primary) hypertension; E11.9 Type 2 diabetes mellitus without complications
CPT/HCPCS: 36415; 71020; 71275; 80053; 82150; 83690; 84484; 85025; 87070; 87205; 93005; 93041; 96361; 96374; 96375

== ENCOUNTER 2017-08-09 01:45 | Emergency (ER) | payer BC ==
[~2017-08-09] VITALS: Ht 177.8 cm; Wt 84.8 kg
[~2017-08-09 01:45] MED LIST changes: +ACHD5005; +ACHD5005 PO; -HYDR-3812; -HYDR-3812 PO; +METO100T12; -METO100T2
--- OUTSIDE RECORDS SUMMARY | 2017-08-09 01:50 | XMS REPORT ---
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 Name Role Phone LARISA COBOS Unavailable PROBLEMS Type Condition ICD9-CM Code [id number] Code Onset Dates Condition Status SNOMED Code Problem History of pulmonary embolism Z86.711 Active 900717229 Problem Type 2 diabetes mellitus without complications E11.9 Active 561826103 Problem Diabetes type 2, controlled E11.9 Active 53702112 Problem Essential hypertension, benign 401.1 Active [id number] ALLERGIES No Known Allergies SOCIAL HISTORY Never Assessed PLAN OF CARE Activity Details Follow Up prn Reason: VITAL SIGNS Height 70 in 2016-03-16 Weight 218.8 lbs 2016-03-16 Temperature 98.6 degrees Fahrenheit 2016-03-16 Heart Rate 80 bpm 2016-03-16 Respiratory Rate 20 2016-03-16 BMI 31.39 kg/m2 2016-03-16 Blood pressure systolic 138 mmHg 2016-03-16 Blood pressure diastolic 88 mmHg 2016-03-16 MEDICATIONS Medication Instructions Dosage Frequency Start Date End Date Duration Status Ranitidine HCl 150 MG Orally Twice a day 1 capsule 12h 90 Active One Daily Mens Active Lisinopril 40 mg 1 tablet 24h 90 Active Clonazepam 2 MG Orally Twice a day 1 tablet 12h Aug, Active Mucinex 600 MG Orally every 12 hrs 1 tablet as needed 12h Active ProAir HFA 108 (90 Base) MCG/ACT Inhalation every 4 hrs 2 puffs as needed 4h Feb, 30 days Active GlipiZIDE-Metformin HCl 5-500 MG Orally 2 times a day 1 tablet with a meal 12h Apr, 30 Active Metoprolol Tartrate 100 MG 1 tablet 12h Active Benadryl Allergy 25 MG Active ZyrTEC 10 mg 1 tablet 24h May, Active Lorazepam 1 MG Orally Once a day 1 tablet as needed 24h Sep, Active RESULTS Name Result Date Reference Range Xray : Foot, Right 3 views (IN HOUSE) 2016-03-16 PROCEDURES Procedure Date Ordered Result Body Site X-RAY EXAM OF FOOT Mar 16, 2016 IMMUNIZATIONS No Known Immunizations MEDICAL (GENERAL) HISTORY Type Description Date Medical History Diabetes Type 2 Medical History hypertension Medical History anxiety Medical History PE Surgical History tumor removed from the back of head
--- OUTSIDE RECORDS SUMMARY | 2017-08-09 01:50 | XMS REPORT ---
Author Author CECIL MCCLOUD Organization [facility] Address [address] [place] [address] Care Team Providers Care Benzol Operator Name Role Phone CECIL MCCLOUD Unavailable PROBLEMS Type Condition ICD9-CM Code LYU31-KR Code Onset Dates Condition Status SNOMED Code Problem History of pulmonary embolism Z86.711 Active 848649334 Problem Type 2 diabetes mellitus without complications E11.9 Active 841133656 Problem Diabetes type 2, controlled E11.9 Active [id number] ALLERGIES No Information ENCOUNTERS Encounter Location Date Diagnosis [place] [id number] [place] [address] 42248- 5737 May, [place] [id number] [place] [address] 18279- 0317 Apr, Diabetes type 2, controlled E11.9 [place] [id number] [place] [address] 27424- 1751 Mar, Diabetes type 2, controlled E11.9 [place] [id number] [place] [address] 84273- 0439 Feb, Diabetes type 2, controlled E11.9 [place] [id number] [place] [address] 73014- 6967 Jan, Diabetes type 2, controlled E11.9 [place] [id number] [place] [address] 66821- 9412 Dec, Diabetes type 2, controlled E11.9 and Encounter for immunization Z23 [place] [id number] [place] [address] 29055- 6307 Sep, History of pulmonary embolism Z86.711 [place] [id number] [place] [address] 18361- 9773 Sep, [facility] [address], [place] [address] 4218 Sep, [facility] [id number] [place] [address] 82569- 1065 Sep, Diabetes type 2, controlled E11.9 [facility] [id number] [place] [address] 87495- 3592 Sep, [facility] [id number] [place] [address] 61843- 3064 Aug, Diabetes type 2, controlled E11.9 [place] [id number] [place] [address] 74726- 2620 Aug, [facility] WALK IN [place] [id number] [place] [address] 36536 -9798 Aug, Left foot pain M79.672 [place] [id number] [place] [address] 32713- 5186 Jul, [place] [id number] [place] [address] 92540- 2705 Jul, Diabetes type 2, controlled E11.9 and Acute idiopathic gout of ankle, 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 [place] [address] [place] [address] 45979- 4098 14 Jul, 2016 Diabetes type 2, controlled E11.9 and Acute idiopathic gout of ankle, 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 [facility] CARE [facility] [address], [place] [address] Mar, Right foot pain M79.671 and Contusion of right foot, initial encounter S90.31XA [facility] WALK IN [place] [id number] [place] [address] 51869 -3856 Feb, Shortness of breath R06.02 ; Body aches R52 and Pneumonia due to infectious organism, unspecified laterality, unspecified part of lung J18.9 [place] [id number], [place] [address] 8030 Sep, Type 2 diabetes mellitus without complications E11.9 ; 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 and Anxiety F41.9 [facility] [id number] [place] [address] 28596- 9178 Aug, Diabetes type 2, controlled E11.9 ; Anxiety F41.9 and Encounter for immunization Z23 [facility] [id number] [place] [address] 00075- 5335 Aug, [facility] [id number] [place] [address] 98026- 0767 Apr, [facility] [id number] [place] [address] 99471- 5222 Apr, Diabetes type 2, controlled E11.9 [facility] [id number] [place] [address] 96026- 0218 Jan, [facility] [id number] [place] [address] 33463- 4650 Jan, [facility] [id number] [place] [address] 95762- 8864 Jan, [facility] [id number] [place] [address] 00350- 9005 June, [facility] [address], [place] [address]- 6484 May, [facility] [address] [place] [address] 01085- 3442 May, [facility] [address], [place] [address] 0330 Feb, [facility] [id number] [place] [address] 38306- 2523 Feb, [facility] [address], [place] [address]- 8717 Nov, [facility] [address] [place] [address] 9140 Nov, 2013 [facility] [place] [facility] [address] [id number] [place] [address]- 2292 Nov, 2013 [facility] [place] [facility] [address] [id number] [place] [address]- 7981 Nov, 2013 [facility] [place] [facility] [address] [id number] [place] [address]- 8758 Nov, 2013 [facility] [place] [facility] [address] [id number] [place] [address]- 6190 Nov, 2013 [facility] [place] [facility] [address] [id number] [place] [address]- 7130 05 Sep, 2013 [facility] [place] [facility] [address] [id number] [place] [address]- 3084 05 Oct, 2013 [facility] [place] [facility] [address] [id number] [place] [address]- 5938 05 Oct, 2013 [facility] [place] [facility] [address] [id number] [place] [address]- 7259 05 Oct, 2013 [facility] [place] [facility] [address] [id number] [place] [address]- 7096 03 Oct, 2013 [facility] [place] [facility] [address] [id number] [place] [address]- 5399 03 Oct, 2013 [facility] [place] [facility] [address] [id number] [place] [address]- 7215 Sep, [facility] [place] [facility] [address] [id number] [place] [address]- 1919 Sep, [facility] [place] [facility] [address] [id number] [place] [address]- 7190 May, [facility] [place] [facility] [address] [id number] [place] [address]- 6809 May, [facility] [place] [facility] [address] [id number] [place] [address]- 2646 May, [facility] [place] [facility] [address] [id number] [place] [address]- 0351 May, [facility] [place] [facility] [address] [id number] [place] [address]- 0426 Apr, [facility] [place] [facility] [address] [id number] [place] [address]- 7880 Apr, [facility] [place] [facility] [address] [id number] [place] [address]- 9469 Feb, [facility] [place] [facility] [address] [id number] [place] [address]- 2940 Feb, [facility] [place] [facility] [address] [id number] [place] [address]- 2693 Nov, [facility] [place] [facility] [address] [id number] [place] [address]- 1530 Oct, [facility] [place] [facility] [address] [id number] [place] [address]- 2843 Oct, [facility] [place] [facility] [address] [id number] [place] [address]- 0574 Jul, [facility] [place] [facility] [address] [id number] [place] [address]- 6758 June, [facility] [place] [facility] [address] [id number] [place] [address]- 6655 Dec, [facility] [place] [facility] [address] [id number], [place] [address]- 6077 Dec, [facility] [place] [facility] [address] [id number] [place] [address]- 1957 Nov, [facility] [place] [facility] [address] [id number] [place] [address]- 6832 Nov, [facility] [place] [facility] [address] [id number] [place] [address]- 0076 15 Nov, 2011 [facility] [place] [facility] [address] [id number], [place] [address]- 3606 Sep, [facility] [address], [place] [address]- 9726 Sep, [facility] [address], [place] [address]- 2016 May, [facility] [address], [place] [address]- 2682 May, [facility] [address] [place] [id number], [place] [address]- 3522 Feb, [facility] [address], [place] [address]- 7642 Dec, [facility] [address], [place] [address]- 7153 Dec, [facility] [address], [place] [address]- 1133 Dec, [facility] [address], [place] [address]- 9828 Jan, [facility] [address], [place] [address]- 9132 Jan, [facility] [address], [place] [address]- 8551 Sep, [facility] [id number], [place] [address]- 2188 Dec, [facility] [address], [place] [address]- 9866 Jul, [facility] [id number], [place] [address]- 0392 Nov, IMMUNIZATIONS No Known Immunizations SOCIAL HISTORY Never Assessed REASON FOR VISIT Pain Mgmt PLAN OF CARE VITAL SIGNS MEDICATIONS Unknown Medications RESULTS No Results PROCEDURES No Known procedures INSTRUCTIONS MEDICATIONS ADMINISTERED No Known Medications MEDICAL (GENERAL) HISTORY Type Description Date Medical History Diabetes Type 2 Medical History hypertension Medical History anxiety Medical History PE Surgical History tumor removed from the back of head
--- OUTSIDE RECORDS SUMMARY | 2017-08-09 01:51 | XMS REPORT ---
Author Author CECIL MCCLOUD Organization [facility] Address [address] [place] [address] Care Team Providers Care Supervisor Wall Mirror Department Name Role Phone CECIL MCCLOUD Unavailable PROBLEMS Type Condition ICD9-CM Code [id number] Code Onset Dates Condition Status SNOMED Code Problem History of pulmonary embolism Z86.711 Active 630124295 Problem Type 2 diabetes mellitus without complications E11.9 Active 363427585 Problem Diabetes type 2, controlled E11.9 Active 75392680 ALLERGIES No Information ENCOUNTERS Encounter Location Date Diagnosis [place] [id number] [place] [address] 06147- 3562 May, [place] [id number] [place] [address] 62592- 3830 Apr, Diabetes type 2, controlled E11.9 [place] [id number] [place] [address] 98582- 5675 Mar, Diabetes type 2, controlled E11.9 [place] [id number] [place] [address] 82948- 0935 Feb, Diabetes type 2, controlled E11.9 [place] [id number] [place] [address] 07095- 5808 Jan, Diabetes type 2, controlled E11.9 [place] [address] [address] [id number] [place] [address] 14229- 8098 Dec, Diabetes type 2, controlled E11.9 and Encounter for immunization Z23 [place] [id number] [place] [address] 03189- 6948 Sep, History of pulmonary embolism Z86.711 [place] [address] [address] [id number] [place] [address] 01569- 0277 Sep, [facility] [address], [place] [address]- 1203 Sep, [facility] [address] [id number] [place] [address] 31880- 1148 Sep, Diabetes type 2, controlled E11.9 [facility] [address] [id number] [place] [address] 99936- 8500 Sep, [facility] [id number] [place] [address] 51913- 0466 Aug, Diabetes type 2, controlled E11.9 [place] [id number] [place] [address] 73806- 1381 Aug, [facility] WALK IN [place] [id number] [place] [address] 86923 -6910 Aug, Left foot pain M79.672 [place] [id number] [place] [address] 27193- 9008 Jul, [place] [id number] [place] [address] 23326- 8048 Jul, Diabetes type 2, controlled E11.9 and Acute idiopathic gout of ankle, 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 [place] [address] [place] [address] 98498- 9050 14 Jul, 2016 Diabetes type 2, controlled E11.9 and Acute idiopathic gout of ankle, 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 [facility] D[facility] W[facility] IN CARE [facility] [address], [place] [address] -[address]95 Mar, Right foot pain M79.671 and Contusion of right foot, initial encounter S90.31XA [facility] [place] [id number] [place] [address] 58990 -6143 Feb, Shortness of breath R06.02 ; Body aches R52 and Pneumonia due to infectious organism, unspecified laterality, unspecified part of lung J18.9 [place] [id number] [address]- 3076 Sep, Type 2 diabetes mellitus without complications E11.9 ; 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 and Anxiety F41.9 [facility] [id number] [place] [address] 83152- 0357 Aug, Diabetes type 2, controlled E11.9 ; Anxiety F41.9 and Encounter for immunization Z23 [facility] [id number] [place] [address] 27611- 9707 Aug, [facility] [place] [id number] [place] [address] 24127- 1519 Apr, [facility] [id number] [place] [address] 74392- 1900 Apr, Diabetes type 2, controlled E11.9 [facility] [id number] [place] [address] 44659- 4693 Jan, [facility] [id number] [place] [address] 98837- 8438 Jan, [facility] [place] [id number] [place] [address] 97890- 6741 Jan, [facility] [id number] [place] [address] 91855- 9276 June, [facility] [place] [address], [place] [address]- 2965 May, [facility] [place] [address] [place] [address] 19444- 7573 May, [facility] [place] [address], [place] [address]- 9758 Feb, [facility] [id number] [place] [address] 04205- 3815 Feb, [facility] [place] [address], [place] [address]- 2970 Nov, [facility] [place] [address] [place] [address] [place] [address]- 4314 Nov, 2013 [facility] [place] [facility] [address] [id number] [place] [address]- 8461 Nov, 2013 [facility] [place] [facility] [address] [id number] [place] [address]- 2933 Nov, 2013 [facility] [place] [facility] [address] [id number] [place] [address]- 1915 Nov, 2013 [facility] [place] [facility] [address] [id number] [place] [address]- 0288 Nov, 2013 [facility] [place] [facility] [address] [id number] [place] [address]- 5737 05 Sep, 2013 [facility] [place] [facility] [address] [id number] [place] [address]- 6055 05 Oct, 2013 [facility] [place] [facility] [address] [id number] [place] [address]- 4567 05 Oct, 2013 [facility] [place] [facility] [address] [id number] [place] [address]- 8865 05 Oct, 2013 [facility] [place] [facility] [address] [id number] [place] [address]- 9824 03 Oct, 2013 [facility] [place] [facility] [address] [id number] [place] [address]- 9437 03 Oct, 2013 [facility] [place] [facility] [address] [id number] [place] [address]- 6874 Sep, [facility] [place] [facility] [address] [id number] [place] [address]- 8819 Sep, [facility] [place] [facility] [address] [id number] [place] [address]- 5912 May, [facility] [place] [facility] [address] [id number] [place] [address]- 6649 May, [facility] [place] [facility] [address] [id number] [place] [address]- 6945 May, [facility] [place] [facility] [address] [id number] [place] [address]- 2655 May, [facility] [place] [facility] [address] [id number] [place] [address]- 7264 Apr, [facility] [place] [facility] [address] [id number] [place] [address]- 0938 Apr, [facility] [place] [facility] [address] [id number] [place] [address]- 5626 Feb, [facility] [place] [facility] [address] [id number] [place] [address]- 6035 Feb, [facility] [place] [facility] [address] [id number] [place] [address]- 4567 Nov, [facility] [place] [facility] [address] [id number] [place] [address]- 3662 Oct, [facility] [place] [facility] [address] [id number] [place] [address]- 4986 Oct, [facility] [place] [facility] [address] [id number] [place] [address]- 6113 Jul, [facility] [place] [facility] [address] [id number] [place] [address]- 4722 June, [facility] [place] [facility] [address] [id number] [place] [address]- 8051 Dec, [facility] [place] [facility] [address] [id number], [place] [address]- 1839 Dec, [facility] [place] [facility] [address] [id number] [place] [address]- 7019 Nov, [facility] [place] [facility] [address] [id number] [place] [address]- 9508 Nov, [facility] [place] [facility] [address] [id number] [place] [address]- 9728 15 Nov, 2011 [facility] [place] [facility] [address] [id number], [place] [address]- 1366 Sep, [facility] [place] [address], [place] [address]- 4267 Sep, [facility] [place] [address] [address] 2515 May, [facility] [place] [address], [place] [address]- 2560 May, [facility] [place] [address], [place] [address]- 6226 Feb, [facility] [place] [address], [place] [address]- 7418 Dec, [facility] [place] [address] [place] [address] 26682- 2878 Dec, [facility] [place] [address], [place] [address]- 2705 Dec, [facility] [place] [address], [place] [address]- 0650 Jan, [facility] [place] [address], [place] [address]- 0440 Jan, [facility] [place] [address], [place] [address]- 4747 Sep, [facility] [place] [id number], [place] [address]- 8460 Dec, [facility] [place] [address], [place] [address]- 1051 Jul, [facility] [place] [id number], [place] [address]- 0556 Nov, IMMUNIZATIONS No Known Immunizations SOCIAL HISTORY Never Assessed REASON FOR VISIT ER Visit for Pain PLAN OF CARE VITAL SIGNS MEDICATIONS Medication Instructions Dosage Frequency Start Date End Date Duration Status Ridgely 10-325 MG Orally every 6 hrs 1 tablet as needed 6h Sep, Active RESULTS No Results PROCEDURES No Known procedures INSTRUCTIONS MEDICATIONS ADMINISTERED No Known Medications MEDICAL (GENERAL) HISTORY Type Description Date Medical History Diabetes Type 2 Medical History hypertension Medical History anxiety Medical History PE Surgical History tumor removed from the back of head
--- OUTSIDE RECORDS SUMMARY | 2017-08-09 01:51 | XMS REPORT ---
Author Author MIGUELINA CARPIO [facility] Address [address] [place] [address] Care Team Providers Care Bilingual Teacher Aide Name Role Phone FERNANDO CARPIOICE Unavailable PROBLEMS Type Condition ICD9-CM Code [id number] Code Onset Dates Condition Status SNOMED Code Problem History of pulmonary embolism Z86.711 Active 604807939 Problem Type 2 diabetes mellitus without complications E11.9 Active 678789383 Problem Diabetes type 2, controlled E11.9 Active 14663934 Problem Essential hypertension, benign 401.1 Active [id number] ALLERGIES Substance Reaction Event Type Date Status N.K.D.A. Unknown Non Drug Allergy Feb, Unknown SOCIAL HISTORY No smoking Hx information available PLAN OF CARE Activity Details Follow Up prn Reason: VITAL SIGNS Height 70 in 2016-02-10 Weight 220.8 lbs 2016-02-10 Temperature 97.7 degrees Fahrenheit 2016-02-10 Heart Rate 78 bpm 2016-02-10 Respiratory Rate 18 2016-02-10 Oximetry 94 % 2016-02-10 BMI 31.68 kg/m2 2016-02-10 Blood pressure systolic 118 mmHg 2016-02-10 Blood pressure diastolic 78 mmHg 2016-02-10 MEDICATIONS Medication Instructions Dosage Frequency Start Date End Date Duration Status Clonazepam 2 MG Orally Twice a day 1 tablet 12h Aug, Active One Daily Mens Active ProAir HFA 108 (90 Base) MCG/ACT Inhalation every 4 hrs 2 puffs as needed 4h Feb, 30 days Active Metoprolol Tartrate 100 MG 1 tablet 12h Active GlipiZIDE-Metformin HCl 5-500 MG Orally 2 times a day 1 tablet with a meal 12h Apr, 30 Active Lisinopril 40 mg 1 tablet 24h 90 Active Ranitidine HCl 150 MG Orally Twice a day 1 capsule 12h 90 Active ZyrTEC 10 mg 1 tablet 24h May, Active Lorazepam 1 MG Orally Once a day 1 tablet as needed 24h Sep, Active Azithromycin 250 MG Orally Once a day 2 tablets on the first day, then 1 tablet daily for 4 days 24h Feb, Feb, 5 day(s) Active Benadryl Allergy 25 MG Active Mucinex 600 MG Orally every 12 hrs 1 tablet as needed 12h Active PredniSONE 20 MG Orally Once a day 2 tablet 24h Feb, Feb, 5 days Active RESULTS Name Result Date Reference Range INFLUENZA A & B (IN HOUSE) 2016-02-10 INFLUENZA A negative INFLUENZA B negative Control + Lot # [id number] Exp date 2017-02-18 Xray : Chest (IN HOUSE) 2016-02-10 PROCEDURES Procedure Date Ordered Related Diagnosis Body Site NEBULIZER TREATMENT 2016-02-10 N/A ALBUTEROL UNIT DOSE FORM INHALED 2016-02-10 N/A Office Visit, Est Pt., Level 3 Feb 10, 2016 INFLUENZA ASSAY W/OPTIC Feb 10, 2016 MEASURE BLOOD OXYGEN LEVEL Feb 10, 2016 NEB/MDI RX INITIAL Feb 10, 2016 CHEST X-RAY Feb 10, 2016 ALBUTEROL INHAL UNIT DOSE 1 MG Feb 10, 2016 IMMUNIZATIONS No Known Immunizations
--- OUTSIDE RECORDS SUMMARY | 2017-08-09 01:51 | XMS REPORT ---
Author Author CECIL MCCLOUD Organization [facility] [place] Address [address] [place] [address] Care Team Providers Care Outbound Sales Consultant Name Role Phone CECIL MCCLOUD Unavailable PROBLEMS Type Condition ICD9-CM Code GDT29-WA Code Onset Dates Condition Status SNOMED Code Problem History of pulmonary embolism Z86.711 Active 961880896 Problem Type 2 diabetes mellitus without complications E11.9 Active 809703838 Problem Diabetes type 2, controlled E11.9 Active 27856067 ALLERGIES No Information ENCOUNTERS Encounter Location Date Diagnosis [place] [id number] [place] [address] 21399- 0718 May, [place] [address] [address] [id number] [place] [address] 91389- 0769 Apr, Diabetes type 2, controlled E11.9 [facility] [place] [id number] [place] [address] 31859- 6216 Mar, Diabetes type 2, controlled E11.9 [place] [id number] [place] [address] 96822- 2283 Feb, Diabetes type 2, controlled E11.[address] [place] [address] [address] 07561- 5439 Jan, Diabetes type 2, controlled E11.[address] [place] [address] [id number] [place] [address] 63804- 6843 Dec, Encounter for immunization Z23 and Diabetes type 2, controlled E11.9 [facility] [place] [id number] [place] [address] 44769- 6766 Sep, History of pulmonary embolism Z86.711 [facility] [place] [id number] [place] [address] 31690- 4655 Sep, [facility] [place] [address] [address]- 4933 Sep, [facility] [place] [id number] [place] [address] 55499- 2316 Sep, Diabetes type 2, controlled E11.9 [facility] [place] [id number] [place] [address] 62744- 0721 Sep, [facility] [place] [id number] [place] [address] 09814- 2009 Aug, Diabetes type 2, controlled E11.9 [place] [id number] [place] [address] 47723- 2067 Aug, [facility] [place] [id number] [place] [address] 18385 -5876 Aug, Left foot pain M79.672 [place] [id number] [place] [address] 54643- 5731 Jul, [place] [id number] [place] [address] 29787- 0033 Jul, Diabetes type 2, controlled E11.9 and Acute idiopathic gout of ankle, 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 [place] [id number] [place] [address] 72502- 1019 14 Jul, 2016 Diabetes type 2, controlled E11.9 and Acute idiopathic gout of ankle, 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 [facility] N [address] [address]73 Mar, Right foot pain M79.671 and Contusion of right foot, initial encounter S90.31[facility] [place] [id number] [place] [address] 51881 -8703 Feb, Shortness of breath R06.02 ; Body aches R52 and Pneumonia due to infectious organism, unspecified laterality, unspecified part of lung J18.9 [place] [id number] [address]- 1161 Sep, Type 2 diabetes mellitus without complications E11.9 ; 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 and Anxiety F41.9 [facility] [place] [id number] [place] [address] 90932- 9423 Aug, Diabetes type 2, controlled E11.9 ; Anxiety F41.9 and Encounter for immunization Z23 [facility] [place] [id number] [place] [address] 48027- 6994 Aug, [facility] [place] [id number] [place] [address] 94881- 6858 Apr, [facility] [place] [id number] [place] [address] 32675- 2089 Apr, Diabetes type 2, controlled E11.9 [facility] [place] [id number] [place] [address] 24321- 5621 Jan, [facility] [place] [id number] [place] [address] 02911- 3731 Jan, [facility] [place] [id number] [place] [address] 59619- 5362 Jan, [facility] [place] [id number] [place] [address] 05084- 8839 June, [facility] [place] [address] [address]- 6318 May, [facility] [place] [id number] [place] [address] 28185- 9006 May, [facility] [place] [address] [address]- 3073 Feb, [facility] [place] [id number] [place] [address] 21955- 1722 Feb, [facility] [place] [address] [address]- 7790 Nov, [facility] [place] [address] [place] [address] [id number] [place] [address]- 2839 Nov, 2013 [facility] [place] [facility] [address] [id number] [place] [address]- 0471 Nov, 2013 [facility] [place] [facility] [address] [id number] [place] [address]- 2180 Nov, 2013 [facility] [place] [facility] [address] [id number] [place] [address]- 2066 Nov, 2013 [facility] [place] [facility] [address] [id number] [place] [address]- 9063 Nov, 2013 [facility] [place] [facility] [address] [id number] [place] [address]- 2579 05 Sep, 2013 [facility] [place] [facility] [address] [id number] [place] [address]- 6327 05 Oct, 2013 [facility] [place] [facility] [address] [id number] [place] [address]- 7648 05 Oct, 2013 [facility] [place] [facility] [address] [id number] [place] [address]- 7634 05 Oct, 2013 [facility] [place] [facility] [address] [id number] [place] [address]- 9708 03 Oct, 2013 [facility] [place] [facility] [address] [id number] [place] [address]- 4647 03 Oct, 2013 [facility] [place] [facility] [address] [id number] [place] [address]- 2976 Sep, [facility] [place] [facility] [address] [id number] [place] [address]- 8115 Sep, [facility] [place] [facility] [address] [id number] [place] [address]- 0284 May, [facility] [place] [facility] [address] [id number] [place] [address]- 1672 May, [facility] [place] [facility] [address] [id number] [place] [address]- 4017 May, [facility] [place] [facility] [address] [id number] [place] [address]- 3268 May, [facility] [place] [facility] [address] [id number] [place] [address]- 6722 Apr, [facility] [place] [facility] [address] [id number] [place] [address]- 1506 Apr, [facility] [place] [facility] [address] [id number] [place] [address]- 6487 Feb, [facility] [place] [facility] [address] [id number] [place] [address]- 4550 Feb, [facility] [place] [facility] [address] [id number] [place] [address]- 1598 Nov, [facility] [place] [facility] [address] [id number] [place] [address]- 5036 Oct, [facility] [place] [facility] [address] [id number] [place] [address]- 3806 Oct, [facility] [place] [facility] [address] [id number] [place] [address]- 3954 Jul, [facility] [place] [facility] [address] [id number] [place] [address]- 0240 June, [facility] [place] [facility] [address] [id number] [place] [address]- 5299 Dec, [facility] [place] [facility] [address] [id number] [address]- 3351 Dec, [facility] [place] [facility] [address] [id number] [place] [address]- 1975 Nov, [facility] [place] [facility] [address] [id number] [place] [address]- 5387 Nov, [facility] [place] [facility] [address] [id number] [place] [address]- 9800 15 Nov, 2011 [facility] [place] [facility] [address] [id number] [address]- 7182 Sep, [facility] [place] [address] [address]- 6595 Sep, [facility] [place] [address] [address]- 0376 May, [facility] [place] [address] [address]- 8204 May, [facility] [place] [address] [address]- 9654 Feb, [facility] [place] [address] [address]- 1310 Dec, [facility] [place] [address] [address]- 8445 Dec, [facility] [place] [address] [address]- 1506 Dec, [facility] [place] [address] [address]- 5305 Jan, [facility] [place] [address] [address]- 8916 Jan, [facility] [place] [address] [address]- 1967 Sep, [facility] [place] [address] [address]- 9804 Dec, [facility] [place] [address] [address]- 9276 Jul, [facility] [place] [address] [place] [id number]859 Nov, IMMUNIZATIONS No Known Immunizations SOCIAL HISTORY Never Assessed REASON FOR VISIT PLAN OF CARE VITAL SIGNS MEDICATIONS Medication Instructions Dosage Frequency Start Date End Date Duration Status Pravastatin Sodium 20 mg Orally Once a day 1 tablet 24h Jul, 30 day(s) Active RESULTS No Results PROCEDURES No Known procedures INSTRUCTIONS MEDICATIONS ADMINISTERED No Known Medications MEDICAL (GENERAL) HISTORY Type Description Date Medical History Diabetes Type 2 Medical History hypertension Medical History anxiety Medical History PE Surgical History tumor removed from the back of head
--- OUTSIDE RECORDS SUMMARY | 2017-08-09 01:51 | XMS REPORT ---
Author CECIL Black Organization [employer] Address Unknown Phone Unavailable Care Team Providers Care Secure Software Assessor Name Role Phone CECIL MCCLOUD CP Unavailable Allergies, Adverse Reactions, Alerts Substance Reaction Event Type N.K.D.A. Info Not Available Non Drug Allergy Problems Problem Type Condition Code Onset Dates Condition Status Problem Essential hypertension, benign 401.1 Active Assessment Diabetes type 2, controlled E11.9 Active Problem Diabetes type 2, controlled E11.9 Active Medications Medication Code System Code Instructions Start Date End Date Status Dosage Ativan [facility] [address]-05 1 MG 2 times a day Feb 26, 2014 1 tablet Lisinopril [facility] [address]-66 40 MG Once a day 1 tablet ZyrTEC [facility] 0 10 MG Once a day May 29, 2013 1 tablet Naprosyn [facility] [address]-33 500 MG every 12 hrs Nov 02, 2012 1 tablet GlipiZIDE-Metformin HCl [facility] [address]-38 5-500 MG Orally 2 times a day April 10, 2015 1 tablet with a meal Promethazine HCl [facility] [address]-05 25 MG Orally 4 times a day April 10, 2015 1 tablet as needed One Daily Mens [facility] [address]-40586 Orally not defined Ranitidine HCl [facility] [address]-16 150 MG Orally Twice a day 1 capsule Metoprolol Tartrate [facility] [address]-83 100 MG Twice a day 1 tablet Procedures Procedure Coding System Code Date GLYCATED HEMOGLOBIN TEST CPT-4 49623 April 10, 2015 Office Visit, Est Pt., Level 3 CPT-4 08459 April 10, 2015 Vital Signs Date/Time: April 10, 2015 Temperature 99.4 F Weight 206.7 lbs Height 70 in BMI 29.66 Index Blood Pressure Diastolic 118 mmHg Blood Pressure Systolic 176 mmHg Cardiac Monitoring Heart Rate 96 bpm Results No Known Results Summary Purpose [employer] Submission
--- OUTSIDE RECORDS SUMMARY | 2017-08-09 01:51 | XMS REPORT ---
Author Author CECIL MCCLOUD Organization [facility] Address [address] [place] [address] Care Team Providers Care Production Cost Estimator Name Role Phone ROGERS CECIL Unavailable PROBLEMS Type Condition ICD9-CM Code GUC77-RP Code Onset Dates Condition Status SNOMED Code Problem History of pulmonary embolism Z86.711 Active 152076525 Problem Type 2 diabetes mellitus without complications E11.9 Active 358280586 Problem Diabetes type 2, controlled E11.9 Active 25818623 ALLERGIES Substance Reaction Event Type Date Status Pravastatin Sodium swelling Drug Allergy Sep, Active ENCOUNTERS Encounter Location Date Diagnosis [place] [address] [address]- 0863 June, [facility] [address] [id number] [place] [address] 69935- 6155 May, Diabetes type 2, controlled [place]11.[address] [place] [address] 27294- 3551 Apr, Diabetes type 2, controlled [place]11[place] [place] [address] [address] [address] [id number] [place] [address] 08166- 6042 Mar, Diabetes type 2, controlled [address]11.[address] [place] [address] [id number] [place] [address] 90858- 1329 Feb, Diabetes type 2, controlled [place]11[place] [place] [address] [address] [place] [address] [id number] [place] [address] 29004- 8823 Jan, Diabetes type 2, controlled E11.[address] [place] [address] [address] [place] [address] [id number] [place] [address] 48753- 5921 Dec, Encounter for immunization Z23 and Diabetes type 2, controlled E11.9 [place] [address] [place] [address]- 0523 Sep, History of pulmonary embolism Z86.711 [facility] [id number] [place] [address] 01397- 3187 Sep, [facility] [id number] [place] [address] 26533- 7632 Sep, [facility] [id number] [place] [address] 79029- 5959 Sep, Diabetes type 2, controlled E11.9 [facility] [address] [id number] [place] [address] 15596- 0877 Sep, [facility] [id number] [place] [address] 71421- 3649 Aug, Diabetes type 2, controlled E11.9 [place] [id number] [place] [address] 54317- 2019 Aug, [facility] [id number] [place] [address] 46825 -5304 Aug, Left foot pain M79.672 [place] [address] [address] [id number] [place] [address] 51245- 2812 Jul, 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 and Anxiety F41.9 [place] [address] 11599- 3441 Aug, Diabetes type 2, controlled E11.9 ; Anxiety F41.9 and Encounter for immunization Z23 [place] [address] 10992- 5943 Aug, [place] [address] [id number] [place] [address] 24488- 0966 Apr, [place] [address] 33921- 0501 Apr, Diabetes type 2, controlled E11.9 [place] [id number] [place] [address] 90143- 3392 Jan, [place] [address] [id number] [place] [address] 35331- 9624 Jan, [place] [address] [address] [id number] [place] [address] 21869- 7264 Jan, [facility] [id number] [place] [address] 59917- 8428 June, [facility] [id number] [place] [address] 61157- 8377 May, [facility] [address] 00467- 7817 May, [facility] [address] [id number] [place] [address] 43523- 8712 Feb, [facility] [address] 15755- 6174 Feb, [facility] [place] [facility] [address] [id number] [place] [address]- 8405 Nov, [facility] [place] [facility] [address] [id number] [place] [address]- 5573 Nov, [facility] [place] [facility] [address] [id number] [place] [address]- 0027 Nov, [facility] [place] [facility] [address] [id number] [place] [address]- 6829 Nov, [facility] [place] [facility] [address] [id number] [place] [address]- 6951 Nov, [facility] [place] [facility] [address] [id number] [place] [address]- 9386 Nov, [facility] [place] [facility] [address] [id number] [place] [address]- 8727 Oct, 2013 [facility] [place] [facility] [address] [id number] [place] [address]- 6207 Oct, 2013 [facility] [place] [facility] [address] [id number] [place] [address]- 1762 Oct, 2013 [facility] [place] [facility] [address] [id number] [place] [address]- 9162 Oct, 2013 [facility] [place] [facility] [address] [id number] [place] [address]- 6484 Oct, 2013 [facility] [place] [facility] [address] [id number] [place] [address]- 2822 Oct, 2013 [facility] [place] [facility] [address] [id number] [place] [address]- 7432 Sep, [facility] [place] [facility] [address] [id number] [place] [address]- 8744 Sep, [facility] [place] [facility] [address] [id number] [place] [address]- 7090 May, [facility] [place] [facility] [address] [id number] [place] [address]- 1218 May, [facility] [address] [id number] [place] [address]- 6062 May, [facility] [place] [facility] [address] [id number] [place] [address]- 3580 May, [facility] [address] [id number] [place] [address]- 9723 Apr, [facility] [place] [facility] [address] [id number] [place] [address]- 3439 Apr, [facility] [address] [id number] [place] [address]- 9023 Feb, [facility] [place] [facility] [address] [id number] [place] [address]- 6478 Feb, [facility] [address] [id number] [place] [address]- 0518 Nov, [facility] [address] [id number] [place] [address]- 5187 Oct, [facility] [place] [facility] [address] [id number] [place] [address]- 0830 Oct, [facility] [address] [id number] [place] [address]- 2016 Jul, [facility] [place] [facility] [address] [id number] [place] [address]- 7079 June, [facility] [place] [facility] [address] [id number] [place] [address]- 2307 Dec, [facility] [place] [facility] [address] [id number] [place] [address]- 4211 Dec, [facility] [place] [facility] [address] [id number] [place] [address]- 1639 Nov, [facility] [place] [facility] [address] [id number] [place] [address]- 0193 Nov, [facility] [address] [facility] [id number] [place] [address]- 5595 Nov, [facility] [address] [facility] [id number] [place] [address]- 9026 Sep, [facility] [address] [facility] [id number] [place] 2367 Sep, [facility] [address] [facility] [id number] [place] [address]- 3165 May, [facility] [address] [facility] [id number] [place] [address]- 5771 May, [facility] [address] [facility] [id number] [place] [address]- 2009 Feb, [facility] [address] [address]- 3081 17 Dec, 2010 [facility] [address] [address]- 7291 16 Dec, 2010 [facility] [id number] [address]- 3636 Dec, [facility] [address] [address]- 6775 14 Jan, 2010 [facility] [id number] [address] Jan, [facility] [id number] [address] 16 Sep, 2009 [facility] [address] [facility] [id number] [address] Dec, [facility] [id number] [address] 10 Jul, 2008 [facility] [id number] [address] 13 Nov, 2007 IMMUNIZATIONS No Known Immunizations SOCIAL HISTORY Never Assessed REASON FOR VISIT Diabetic f/u, PE right lung f/u, ABoggsLPN PLAN OF CARE Activity Details Follow Up 4 Weeks Reason:p.e. VITAL SIGNS Height 70 in 2016-09-25 Weight 197.7 lbs 2016-09-25 Temperature 98.1 degrees Fahrenheit 2016-09-25 Heart Rate 88 bpm 2016-09-25 Respiratory Rate 20 2016-09-25 BMI 28.36 kg/m2 2016-09-25 Blood pressure systolic 118 mmHg 2016-09-25 Blood pressure diastolic 84 mmHg 2016-09-25 MEDICATIONS Medication Instructions Dosage Frequency Start Date End Date Duration Status ZyrTEC 10 mg 1 tablet 24h May, 90 Active Xarelto 20 mg Orally Once a day 1 tablet with food 24h Sep, 30 day(s) Active Fish Oil 1000 MG Orally Once a day 1 capsule 24h Active Benadryl Allergy 25 MG Active Lorazepam 1 MG Orally twice a day 1 tablet as needed 12h Sep, Active Metoprolol Tartrate 100 mg 1 tablet 12h Active GlipiZIDE-Metformin HCl 5-500 MG Orally 2 times a day 1 tablet with a meal 12h 30 Active Xarelto 15 mg Orally 2 times a day 1 tablet with food 12h Active Ultra Test Strips - subcutaneously 2 times a day Test blood sugar 12h Aug, Active Ranitidine HCl 150 MG Orally Twice a day 1 capsule 12h 90 Active One Daily Mens Active [place] 10-325 MG Orally every 6 hrs 1 tablet as needed 6h Sep, Active Lisinopril 40 mg 1 tablet 24h Active RESULTS No Results PROCEDURES Procedure Date Ordered Result Body Site THROMBOPLASTIN TIME, PARTIAL Sep 25, 2016 VENIPUNCT, ROUTINE* Sep 25, 2016 COMPLETE CBC W/AUTO DIFF WBC Sep 25, 2016 FIBRIN DEGRADATION, QUANT Sep 25, 2016 COMPREHEN METABOLIC PANEL Sep 25, 2016 PROTHROMBIN TIME Sep 25, 2016 INSTRUCTIONS MEDICATIONS ADMINISTERED No Known Medications MEDICAL (GENERAL) HISTORY Type Description Date Medical History Diabetes Type 2 Medical History hypertension Medical History anxiety Medical History PE Surgical History tumor removed from the back of head
--- OUTSIDE RECORDS SUMMARY | 2017-08-09 01:52 | XMS REPORT ---
Author Author CECIL MCCLOUD Organization [facility] [place] Address [address] [place] [address] Care Team Providers Care Coke Oven Patcher Name Role Phone CECIL MCCLOUD Unavailable PROBLEMS Type Condition ICD9-CM Code HAZ30-LN Code Onset Dates Condition Status SNOMED Code Problem History of pulmonary embolism Z86.711 Active 300645984 Problem Type 2 diabetes mellitus without complications E11.9 Active 017338781 Problem Diabetes type 2, controlled E11.9 Active [id number] ALLERGIES No Information ENCOUNTERS Encounter Location Date Diagnosis [place] [id number] [place] [address] 57807- 1744 May, [place] [address] [id number] [place] [address] 77077- 6982 Apr, Diabetes type 2, controlled E11.9 [place] [id number] [place] [address] 58276- 3755 Mar, Diabetes type 2, controlled E11.9 [place] [id number] [place] [address] 13114- 7221 Feb, Diabetes type 2, controlled E11.9 [place] [id number] [place] [address] 90519- 2902 Jan, Diabetes type 2, controlled E11.9 [place] [address] [address] [id number] [place] [address] 05566- 7916 Dec, Diabetes type 2, controlled E11.9 and Encounter for immunization Z23 [place] [id number] [place] [address] 47160- 5259 Sep, History of pulmonary embolism Z86.711 [place] [address] [id number] [place] [address] 59866- 5390 Sep, [facility] [place] [address] [address] Sep, [facility] [place] [id number] [place] [address] 58253- 8709 Sep, Diabetes type 2, controlled E11.9 [facility] [place] [id number] [place] [address] 17617- 9620 Sep, [facility] [place] [id number] [place] [address] 79680- 7847 Aug, Diabetes type 2, controlled E11.9 [place] [id number] [place] [address] 48186- 6754 Aug, [facility] [place] [id number] [place] [address] 54490 -5409 Aug, Left foot pain M79.672 [place] [id number] [place] [address] 97348- 1626 Jul, [place] [id number] [place] [address] 05173- 2307 Jul, Diabetes type 2, controlled E11.9 and Acute idiopathic gout of ankle, 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 Z79.4 and Anxiety F41.9 [facility] [place] [id number] [place] [address] 31151- 3209 Aug, Diabetes type 2, controlled E11.9 ; Anxiety F41.9 and Encounter for immunization Z23 [facility] [place] [id number] [place] [address] 79207- 9315 Aug, [facility] [place] [id number] [place] [address] 11100- 2902 Apr, [facility] [place] [id number] [place] [address] 06059- 9709 Apr, Diabetes type 2, controlled E11.9 [facility] [place] [id number] [place] [address] 41688- 8996 Jan, [facility] [place] [id number] [place] [address] 51194- 3838 Jan, [facility] [place] [id number] [place] [address] 21518- 8631 Jan, [facility] [place] [id number] [place] [address] 29579- 1805 June, [facility] [place] [address] [address] 4068 May, [facility] [place] [address] [place] [address] 66977- 7535 May, [facility] [place] [address] [address] 1238 Feb, [facility] [place] [id number] [place] [address] 89715- 1043 Feb, [facility] [place] [address], [place] [address] 9873 Nov, [facility] [place] [address] [place] [address] [place] [address] 8369 Nov, 2013 [facility] [place] [facility] [address] [id number] [place] [address]- 1700 Nov, 2013 [facility] [place] [facility] [address] [id number] [place] [address]- 1453 Nov, 2013 [facility] [place] [facility] [address] [id number] [place] [address]- 7161 Nov, 2013 [facility] [place] [facility] [address] [id number] [place] [address]- 0352 Nov, 2013 [facility] [place] [facility] [address] [id number] [place] [address]- 0336 05 Sep, 2013 [facility] [place] [facility] [address] [id number] [place] [address]- 3168 05 Oct, 2013 [facility] [place] [facility] [address] [id number] [place] [address]- 6231 05 Oct, 2013 [facility] [place] [facility] [address] [id number] [place] [address]- 2321 05 Oct, 2013 [facility] [place] [facility] [address] [id number] [place] [address]- 7813 03 Oct, 2013 [facility] [place] [facility] [address] [id number] [place] [address]- 3990 03 Oct, 2013 [facility] [place] [facility] [address] [id number] [place] [address]- 2880 Sep, [facility] [place] [facility] [address] [id number] [place] [address]- 4061 Sep, [facility] [place] [facility] [address] [id number] [place] [address]- 1136 May, [facility] [place] [facility] [address] [id number] [place] [address]- 5808 May, [facility] [place] [facility] [address] [id number] [place] [address]- 5731 May, [facility] [place] [facility] [address] [id number] [place] [address]- 9208 May, [facility] [place] [facility] [address] [id number] [place] [address]- 9259 Apr, [facility] [place] [facility] [address] [id number] [place] [address]- 5321 Apr, [facility] [place] [facility] [address] [id number] [place] [address]- 7074 Feb, [facility] [place] [facility] [address] [id number] [place] [address]- 2165 Feb, [facility] [place] [facility] [address] [id number] [place] [address]- 9741 Nov, [facility] [place] [facility] [address] [id number] [place] [address]- 6996 Oct, [facility] [place] [facility] [address] [id number] [place] [address]- 1023 Oct, [facility] [place] [facility] [address] [id number] [place] [address]- 8889 Jul, [facility] [place] [facility] [address] [id number] [place] [address]- 5151 June, [facility] [place] [facility] [address] [id number] [place] [address]- 1699 Dec, [facility] [place] [facility] [address] [id number] [address]- 5396 Dec, [facility] [place] [facility] [address] [id number] [place] [address]- 7990 Nov, [facility] [place] [facility] [address] [id number] [place] [address]- 8439 Nov, [facility] [place] [facility] [address] [id number] [place] [address]- 8041 15 Nov, 2011 [facility] [place] [facility] [address] [id number] [address]- 5077 Sep, [facility] [place] [address], [place] [address]- 6582 Sep, [facility] [place] [address], [place] [address]- 9419 May, [facility] [place] [address], [place] [address]- 4891 May, [facility] [place] [id number], [place] [address]- 1517 Feb, [facility] [place] [address], [place] [address]- 6180 Dec, [facility] [place] [address], [place] [address]- 3141 Dec, [facility] [place] [address], [place] [address]- 2400 Dec, [facility] [place] [address], [place] [address]- 2837 Jan, [facility] [place] [address], [place] [address]- 9043 Jan, [facility] [place] [address], [place] [address]- 4019 Sep, [facility] [place] [id number], [place] [address]- 0894 Dec, [facility] [place] [address], [place] [address]- 0649 Jul, [facility] [place] [id number]79 Nov, IMMUNIZATIONS No Known Immunizations SOCIAL HISTORY Never Assessed REASON FOR VISIT requesting return call PLAN OF CARE VITAL SIGNS MEDICATIONS Medication Instructions Dosage Frequency Start Date End Date Duration Status Ultra Test Strips - subcutaneously 4 times a day Test blood sugar 6h Aug 30 days Active RESULTS No Results PROCEDURES No Known procedures INSTRUCTIONS MEDICATIONS ADMINISTERED No Known Medications MEDICAL (GENERAL) HISTORY Type Description Date Medical History Diabetes Type 2 Medical History hypertension Medical History anxiety Medical History PE Surgical History tumor removed from the back of head
[2017-08-09] MEDS ORDERED: LACTATED RINGERS 1,000 ML IV ONE ×3 (01:54→02:29)
[2017-08-09] MEDS ORDERED: CYCL10TA9 (02:02)
[2017-08-09] MEDS ORDERED: LORA2TAB (02:02)
--- NOTE | 2017-08-09 02:10 | ED Psychosocial ---
General Chief Complaint: Cardiac/General Problems Stated Complaint: ELEVATED HR Nursing Triage Note: PT BROUGHT IN BY EMS WITH COMPLAINT OF HIGH HEARTRATE. PT WAS FOUND BY [place] [employer] DIGGING IN SOMEONES YARD. EMS EVALUATED PT AND ENCOURAGED PT TO COME TO ER TO BE EVALUATED Source: patient Exam Limitations: no limitations History of Present Illness Date Seen by Provider: Aug 09, 2017 Time Seen by Provider: 01:59 Initial Comments Patient present to ER by EMS with chief complaint that he was out in his yard digging with his hands when the [facility]'s Department was called to respond. They said he was trying to recover the body of his girlfriend who was murdered in front of him and buried out there by strangers. He describes of visit seen with the girlfriend was tied to a pallet and gagged and then buried. This is the second time the [facility]'s Department have been out in the past 24 hours. Yesterday the [facility]'s department had to arrest him but he bonded out this morning. Patient says after he bonded out he went home and called police again because there were people coming to his house and harassing him and his girlfriend. [facility]'s Department deputies state that they went out but did not see anyone and where he said that his girlfriend was buried they did not find any evidence of body. He is also pointing in the distance saying people are running away but they did not see anything that he was pointing out. This patient is well-known to the [facility]'s Department. Patient says he is having no shortness of breath or chest pain but he has had some pain in his left thumb from when he was digging in the ground with his hands and has a little bit of limited range of motion in his left thumb secondary to pain. He says he had some marijuana about 2 days ago maybe laced with something at a [employer]. Patient denies that he uses alcohol or any other recreational drugs. EMS reports his heart rate was high when they got to him about 159 but on resting it went down to 134. On arrival to the ER if he is 130. His blood sugar is 224. He has a history of diabetes and distant history of pulmonary emboli. He is not on blood thinners. He also endorses the belief that there are many crooked officers on the police force and he has a list of all their names and he is going to expose them all. Patient also gives a history that today he watched his mother and father murdered on his porch this afternoon. Patient relates that he was at a democrat couple days and he thinks that the marijuana he smoked was laced with something. The reason he thinks is because when he was in care home yesterday that she checked his urine and told him he had methamphetamines and THC but he says he's never used methamphetamine says life. Allergies and Home Medications Allergies Coded Allergies: No Known Drug Allergies (Unverified , 09/10/16) Home Medications Hydrocodone Bit/Acetaminophen 1 Each Tablet, 1 EACH PO Q6H PRN for BREAKTHROUGH PAIN Prescribed by: EMMY CID on 09/10/16439 Rivaroxaban 1 Each Tab.ds.pk, 1 EACH PO UD 15mg by mouth twice daily x 21 days then 20mg by mouth daily Prescribed by: EMMY CID on 09/10/16439 Patient Home Medication List Home Medication List Reviewed: Yes Constitutional: No chills, No diaphoresis EENTM: No ear discharge, No ear pain Respiratory: No cough, No short of breath Cardiovascular: No see HPI, No Hx of Intervention Gastrointestinal: No abdominal pain, No constipation, No diarrhea, No nausea, No vomiting Genitourinary: No discharge, No dysuria Musculoskeletal: No back pain, No joint pain Skin: No change in color, No pruritus, No rash Psychiatric/Neurological: Denies Headache, Denies Numbness, Denies Paresthesia Past Clenmly-Vhbcca-Rugnbd Hx Patient Social History Alcohol Use: Denies Use Recreational Drug Use: No Type Used: Smokeless Tobacco Recent Foreign Travel: No Contact w/Someone Who Travel: No Recent Infectious Disease Expo: No Recent Hopitalizations: No Past Medical History Surgeries: No Respiratory: No Pulmonary Embolism Cardiac: Yes (PE) Hypertension Neurological: No Genitourinary: No Gastrointestinal: No Musculoskeletal: No Endocrine: Yes Diabetes, Non-Insulin dep HEENT: No Cancer: No Psychosocial: No Integumentary: No Family Medical History No Pertinent Family Hx Physical Exam Vital Signs Vital Signs - First Documented 08/09/17 01:53 Temp 99.1 Pulse 133 Resp 22 B/P (MAP) 154/103 (120) Pulse Ox 95 O2 Delivery Room Air Capillary Refill : Less Than 3 Seconds General Appearance: other (disheveled covered in dirt and plant seed pods) HEENT: PERRL/EOMI, normal ENT inspection, pharynx normal (oral pharynx is dry) Neck: supple, normal inspection Respiratory: chest non-tender, lungs clear, normal breath sounds, no respiratory distress, no accessory muscle use Cardiovascular: normal peripheral pulses, regular rate, rhythm, no edema Peripheral Pulses: 2+ Radial Pulses (R), 2+ Radial Pulses (L) Gastrointestinal: normal bowel sounds, non tender, soft, no organomegaly Extremities: no pedal edema, normal capillary refill, other (mild tenderness in the first phalanx of the first digit on the left hand without ecchymosis or deformity.) Neurologic/Psychiatric: alert, normal mood/affect, oriented x 3, other ( endorses delusions a his was murdered in front of him as well as his mother and father were murdered on his porch tonight in front of him.) Appearance/Memory: denies illness, disheveled, impaired insight Behavior/Eye Contact: cooperative, good eye contact, increased rate of speech Thoughts/Hallucinations: delusions, paranoid, persecution Skin: other (multiple abrasions on all 4 extremities that are linear and on the anterior shins and forearms) Progress/Results/Core Measures Results/Orders Lab Results Laboratory Tests Test 08/09/17 01:49 Range/Units White Blood Count 11.9 H 4.3-11.0 10^3/uL Red Blood Count 4.33 L 4.35-5.85 10^6/uL Hemoglobin 14.4 13.3-17.7 G/DL Hematocrit 39 L 40-54 % Mean Corpuscular Volume 91 80-99 FL Mean Corpuscular Hemoglobin 33 25-34 PG Mean Corpuscular Hemoglobin Concent 37 H 32-36 G/DL Red Cell Distribution Width 12.3 10.0-14.5 % Platelet Count 181 130-400 10^3/uL Mean Platelet Volume 11.5 H 7.4-10.4 FL Neutrophils (%) (Auto) 71 42-75 % Lymphocytes (%) (Auto) 21 12-44 % Monocytes (%) (Auto) 8 0-12 % Eosinophils (%) (Auto) 0 0-10 % Basophils (%) (Auto) 0 0-10 % Neutrophils # (Auto) 8.4 H 1.8-7.8 X 10^3 Lymphocytes # (Auto) 2.5 1.0-4.0 X 10^3 Monocytes # (Auto) 0.9 0.0-1.0 X 10^3 Eosinophils # (Auto) 0.0 0.0-0.3 10^3/uL Basophils # (Auto) 0.0 0.0-0.1 10^3/uL Sodium Level 143 135-145 MMOL/L Potassium Level 3.1 L 3.6-5.0 MMOL/L Chloride Level 105 98-107 MMOL/L Carbon Dioxide Level 12 L 21-32 MMOL/L Anion Gap 26 H 5-14 MMOL/L Blood Urea Nitrogen 21 H 7-18 MG/DL Creatinine 1.64 H 0.60-1.30 MG/DL Estimat Glomerular Filtration Rate 45 BUN/Creatinine Ratio 13 Glucose Level 278 H 70-105 MG/DL Calcium Level 9.5 8.5-10.1 MG/DL Magnesium Level 1.2 L 1.8-2.4 MG/DL Total Bilirubin 1.8 H 0.1-1.0 MG/DL Aspartate Amino Transf (AST/SGOT) 37 H 5-34 U/L Alanine Aminotransferase (ALT/SGPT) 22 0-55 U/L Alkaline Phosphatase 59 40-136 U/L Total Protein 7.4 6.4-8.2 GM/DL Albumin 4.7 H 3.2-4.5 GM/DL Serum Alcohol < 10 <10 MG/DL My Orders Orders - EMMY CID Lactated Ringers (Lr 1000 Ml Iv Solution (08/09/17 01:54) Alcohol (08/09/17 01:58) Cbc With Automated Diff (08/09/17 01:58) Comprehensive Metabolic Panel (08/09/17 01:58) Magnesium (08/09/17 01:58) Hand, Left, 3 Views (08/09/17 01:58) Saline Lock/Iv-Start (08/09/17 01:58) Lactated Ringers (Lr 1000 Ml Iv Solution (08/09/17 01:58) Lactated Ringers (Lr 1000 Ml Iv Solution (08/09/17 02:29) Magnesium Oxide Tablet (Mag Ox Tablet) (08/09/17 02:30) Lorazepam Tablet (Ativan Tablet) (08/09/17 02:45) Lorazepam Tablet (Ativan Tablet) (08/09/17 02:42) Lorazepam Injection (Ativan Injection) (08/09/17 04:00) Medications Given in ED Current Medications Medications Dose Ordered Sig/Taras Route Start Time Stop Time Status Last Admin Dose Admin Lactated Ringer's 1,000 ml @ 0 mls/hr Q0M ONCE IV 08/09/17 01:58 08/09/17 02:05 DC 08/09/17 01:55 1,000 MLS/HR Lactated Ringer's 1,000 ml @ 0 mls/hr Q0M ONCE IV 08/09/17 02:29 08/09/17 02:31 DC 08/09/17 02:45 1,000 MLS/HR Lorazepam 0.5 mg STK-MED ONCE .ROUTE 08/09/17 02:42 08/09/17 02:45 DC 08/09/17 02:46 2 MG Lorazepam 2 mg ONCE ONCE PO 08/09/17 02:45 08/09/17 02:46 DC 08/09/17 02:46 2 MG Lorazepam 4 mg ONCE ONCE IVP 08/09/17 04:00 08/09/17 04:01 DC 08/09/17 03:56 4 MG Magnesium Oxide 400 mg ONCE ONCE PO 08/09/17 02:30 08/09/17 02:31 DC 08/09/17 02:46 400 MG Vital Signs/I&O 08/09/17 08/09/17 01:53 04:07 Temp 99.1 99.1 Pulse 133 112 Resp 22 22 B/P (MAP) 154/103 (120) 138/110 (120) Pulse Ox 95 95 O2 Delivery Room Air Room Air Blood Pressure Mean: 120 Progress Progress Note #1: Time: 02:13 Progress Note We have concern the patient could be utilizing a substance that is causing his delusions and tachycardia. We are going to obtain urine give him a liter fluids and check some blood work. He is not endorsing suicidal or homicidal ideation. He does have paranoia and delusions of persecution. He has pointed out apparent visual hallucinations to the officers but none since he been in the ER. He is calm and cooperative. Both police and for us. He has been removed from restraints. He is now asking to use the phone to call his parents to let them know that he's alright. If he can make contact with them that would rule out and them being murdered on the porch in front of him. 0220: The patient is talking on the phone to his mother discussing his last 2 days. From this side of the conversation it does not appear that she is in agreement with his recollection of the facts. Progress Note #2: Time: 03:52 Progress Note The patient appears to be responding favorably to the 2 mg Ativan however he still persistent in his delusions. His mother has came down danielle visit with him and agreed to take him home tonight and stay in their basement. We are going to let him have another dose of Ativan, 4 mg IV so he can sleep this off. He has been given a total 2 L of fluid and his been drinking multiple cups of water and his dehydration has significant improved. Diagnostic Imaging Diagonstic Imaging: Xray Plain Films/CT/US/NM/MRI: other (hand left) Comments No acute osseous abnormalities. Reviewed: Reviewed by Me Departure Impression Primary Impression: Methamphetamine intoxication Additional Impressions: Delusions Paranoia Dehydration after exertion Disposition: 01 HOME, SELF-CARE Condition: Improved Departure-Patient Inst. Decision time for Depature: 03:53 Referrals: [facility] (PCP) Primary Care Physician CECIL MCCLOUD (Family) Primary Care Physician Patient Instructions: Drug Abuse and Drug Addiction (DC) Add. Discharge Instructions: Go home with your mother and drink some water, use Tylenol if you have a headache and get some sleep. Return to the ER if you're having difficulty with chest pain, shortness of breath or intractable nausea and vomiting. All discharge instructions reviewed with patient and/or family. Voiced understanding. Copy Copies To 1: ANJEL BRADFORD TITUS J Aug 09, 2017 02:10
[2017-08-09 02:11] LABS: BASOPHILS % (AUTO) 0 % (0-10); EOSINOPHILS % (AUTO) 0 % (0-10); HEMATOCRIT 39 % (40-54); HEMOGLOBIN 14.4 G/DL (13.3-17.7); LYMPHOCYTES # (AUTO) 2.5 X 10^3 (1.0-4.0); LYMPHOCYTES % (AUTO) 21 % (12-44); MEAN CORPUSCULAR HEMOGLOBIN 33 PG (25-34); MEAN CORPUSCULAR HGB CONC 37 G/DL (32-36); MEAN CORPUSCULAR VOLUME 91 FL (80-99); MEAN PLATELET VOLUME 11.5 FL (7.4-10.4); MONOCYTES # (AUTO) 0.9 X 10^3 (0.0-1.0); MONOCYTES % (AUTO) 8 % (0-12); NEUTROPHILS # (AUTO) 8.4 X 10^3 (1.8-7.8); NEUTROPHILS % (AUTO) 71 % (42-75); PLATELET COUNT 181 10^3/uL (130-400); RED BLOOD COUNT 4.33 10^6/uL (4.35-5.85); RED CELL DISTRIBUTION WIDTH 12.3 % (10.0-14.5); WHITE BLOOD COUNT 11.9 10^3/uL (4.3-11.0)
[2017-08-09 02:25] LABS: ALANINE AMINOTRANSFERASE 22 U/L (0-55); ALBUMIN 4.7 GM/DL (3.2-4.5); ALKALINE PHOSPHATASE 59 U/L (40-136); BILIRUBIN,TOTAL 1.8 MG/DL (0.1-1.0); BUN/CREATININE RATIO 13; CALCIUM 9.5 MG/DL (8.5-10.1); CARBON DIOXIDE 12 MMOL/L (21-32); CHLORIDE 105 MMOL/L (98-107); CREATININE SERUM 1.64 MG/DL (0.60-1.30); GFR ESTIMATED 45; GLUCOSE 278 MG/DL (70-105); MAGNESIUM 1.2 MG/DL (1.8-2.4); POTASSIUM 3.1 MMOL/L (3.6-5.0); SODIUM 143 MMOL/L (135-145); TOTAL PROTEIN 7.4 GM/DL (6.4-8.2)
[2017-08-09] MEDS ORDERED: MAGNESIUM OXIDE (MAG-OX)400 MG TAB PO ONE (02:30)
[2017-08-09] MEDS ORDERED: LORazepam 0.5 MG (ATIVAN) TABLET ONE (02:42)
[2017-08-09] MEDS ORDERED: LORazepam 1 MG (ATIVAN) TAB PO ONE (02:45)
[2017-08-09] MEDS ORDERED: LORazepam INJ 2 MG/ML (ATIVAN) VIAL IVP ONE (04:00)
[2017-08-09 04:07] VITALS: BP 138/110
--- NOTE | 2017-08-09 06:53 | Diagnostic Imaging Report ---
INDICATION: Left thumb pain EXAMINATION: Left hand dated 08/09/2017 Three views of the hand FINDINGS: There is no evidence for an acute fracture or dislocation. The joint spaces are well maintained. There is no significant soft tissue swelling. IMPRESSION: No acute process. Dictated by: Dictated on workstation # [id number]
== END 2017-08-09 04:07 | disposition home or self-care (01) ==
LOC: EDUNIT# 01:45 → ER 01:46
DX: F15.129 Other stimulant abuse with intoxication, unspecified (principal); F22 Delusional disorders; E86.0 Dehydration; E11.9 Type 2 diabetes mellitus without complications; I10 Essential (primary) hypertension; F12.90 Cannabis use, unspecified, uncomplicated; Z86.711 Personal history of pulmonary embolism
CPT/HCPCS: 36415; 73130; 80053; 80320; 83735; 85025; 96361; 96374